=== PATIENT | female | born 1980 | race Caucasian/White ===

== ENCOUNTER 2016-08-22 19:20 | Emergency (ER) | payer SELFPAY ==
[2016-08-22] MEDS ORDERED: ACETAMINOPHEN 325 MG TABLET PO ONE (21:17)
--- NOTE | 2016-08-22 21:27 | ER Document Report ---
HPI - HPI Pain Level: 4 Context: Is a 36-year-old female who was doing her hair this afternoon when she had her arm up in her hair and she hit her elbow on the door frame. She states she has pain on the medial aspect of the elbow but has full range of motion. Is been able to lift her granddaughter. Denies any swelling. - REPRODUCTIVE LMP: 3 Reproductive: DENIES: : - DERM Skin Color: Normal Past Medical History - Social History Smoking Status: Current Every Day Smoker Family History: Reviewed & Not Pertinent Patient has suicidal ideation: No Patient has homicidal ideation: No Renal/ Medical History: Denies: Hx Peritoneal Dialysis Psychiatric Medical History: Reports: Hx Depression Past Surgical History: Reports: Hx Tubal Ligation - Immunizations Hx Diphtheria, Pertussis, Tetanus Vaccination: Yes Vertical Provider Document - CONSTITUTIONAL Agree With Documented VS: Yes Exam Limitations: No Limitations General Appearance: WD/WN, No Apparent Distress - INFECTION CONTROL TRAVEL OUTSIDE OF THE [place] IN LAST 30 DAYS: No - RESPIRATORY O2 Sat by Pulse Oximetry: 100 - CARDIOVASCULAR Pulses: Normal: Radial Notes: Capillary refill less than 2 seconds in all upper extremity digits. - MUSCULOSKELETAL/EXTREMETIES Musculoskeletal/Extremeties: MAEW, FROM, Tender - Tenderness to palpation over the head of the radius and ulna., No Edema. negative: Eccymosis - NEURO Level of Consciousness: Awake, Alert, Appropriate Motor/Sensory: No Motor Deficit, No Sensory Deficit - DERM Integumentary: Warm, Dry, No Rash. negative: Laceration Course - Re-evaluation Re-evalutation: 08/22/16 21:58 Patient is a 36-year-old female with a neurovascular intact right upper extremity. No evidence of fracture dislocation on x-ray. At home. - Vital Signs Vital signs: Temp Pulse Resp BP Pulse Ox 98.1 F 88 106/89 H 100 08/22/16 20:29 08/22/16 20:29 08/22/16 20:29 08/22/16 20:29 - Diagnostic Test Radiology reviewed: Image reviewed, Reports reviewed Discharge - Discharge Clinical Impression: Elbow pain Condition: Good Disposition: HOME, SELF-CARE Instructions: Use of [id number]-[id number] Ibuprofen ([facility]), Ice & Elevation ([facility]) Additional Instructions: There is no evidence of fracture (broken bone) on your x-ray. I encourage you to use ice 20 minutes on 20 minutes off as tolerated, Motrin for pain and swelling.
[2016-08-22 21:55] VITALS: BP 102/78
== END 2016-08-22 21:30 | disposition home or self-care (01) ==
LOC: ER 19:20
DX: S59.909A Unspecified injury of unspecified elbow, initial encounter (principal); M25.529 Pain in unspecified elbow; X58.XXXA Exposure to other specified factors, initial encounter; F17.200 Nicotine dependence, unspecified, uncomplicated
CPT/HCPCS: 99283

== ENCOUNTER 2017-01-27 08:40 | Emergency (ER) | payer SELFPAY ==
[2017-01-27] MEDS ORDERED: OXYCODONE-ACETAMINOPHEN 5-325 MG TABLET PO ONE (09:29)
[2017-01-27] MEDS ORDERED: LIDOCAINE 5% (700 MG) TRANSDERMAL ADH..PATCH TP ONE (09:29)
[2017-01-27] MEDS ORDERED: KETOROLAC TROMETHAMINE 60 MG/2 ML SDV IM ONE (09:29)
--- NOTE | 2017-01-27 09:31 | ER Document Report ---
HPI - HPI Patient complains to provider of: Low back pain Onset: Other - 4 days Onset/Duration: Persistent Quality of pain: Sharp Pain Level: 3 Context: Patient states she was moving furniture and she felt a pop in her lower back. Patient states since then she has had low back pain with numbness to the left lower extremity. Patient denies any urinary retention or incontinence. Patient denies any pain to her leg. Patient denies any fever, chronic illness or IV drug use. Associated Symptoms: Other - Low back pain. denies: Fever, Headache Exacerbated by: Movement Relieved by: Denies Similar symptoms previously: No Recently seen / treated by doctor: No - ROS ROS below otherwise negative: Yes Systems Reviewed and Negative: Yes All other systems reviewed and negative - CONSTITUTIONAL Constitutional: DENIES: Fever, Chills - NEURO Neurology: DENIES: Weakness - REPRODUCTIVE Reproductive: DENIES: : - MUSCULOSKELETAL Musculoskeletal: REPORTS: Back Pain. DENIES: Extremity pain - DERM Skin Color: Normal Skin Problems: None Past Medical History - General Information source: Patient - Social History Smoking Status: Current Every Day Smoker Chew tobacco use (# tins/day): No Frequency of alcohol use: Rare Drug Abuse: None Occupation: [employer] Family History: Reviewed & Not Pertinent Renal/ Medical History: Denies: Hx Peritoneal Dialysis Psychiatric Medical History: Reports: Hx Depression Past Surgical History: Reports: Hx Tubal Ligation, Other - eye - Immunizations Hx Diphtheria, Pertussis, Tetanus Vaccination: Yes Vertical Provider Document - CONSTITUTIONAL Agree With Documented VS: Yes Exam Limitations: No Limitations General Appearance: WD/WN, No Apparent Distress Notes: PHYSICAL EXAMINATION: GENERAL: Well-appearing, well-nourished and in no acute distress. HEAD: Atraumatic, normocephalic. EYES: sclera clear, anicteric, conjunctiva are normal. ENT: nares patent, Moist mucous membranes. NECK: Normal range of motion, supple no lymphadenopathy LUNGS: respirations unlabored HEART: Regular rate and rhythm without murmurs EXTREMITIES: Normal range of motion, no pitting or edema. No cyanosis. Gait normal, pt ambulates without difficulty BACK: Lower lumbar paraspinal tenderness, lower lumbar midline tenderness, no deformities or step-offs. No CVA tenderness. NEUROLOGICAL: Cranial nerves grossly intact. Normal speech, normal gait. No saddle anesthesia. No foot drop, negative straight leg test bilaterally PSYCH: Normal mood, normal affect. SKIN: Warm, Dry, normal turgor, no rashes or lesions noted. - INFECTION CONTROL TRAVEL OUTSIDE OF THE [place] IN LAST 30 DAYS: No - RESPIRATORY O2 Sat by Pulse Oximetry: 100 Course - Vital Signs Vital signs: Temp Pulse Resp BP Pulse Ox 98.0 F 101 H 14 114/97 H 100 01/27/17 08:44 01/27/17 08:44 01/27/17 08:44 01/27/17 08:44 01/27/17 08:44 - Diagnostic Test Radiology reviewed: Reports reviewed Discharge - Discharge Clinical Impression: Low back pain Qualifiers: Chronicity: acute Back pain laterality: left Sciatica presence: with sciatica Sciatica laterality: sciatica of left side Qualified Code(s): M54.42 - Lumbago with sciatica, left side Condition: Stable Disposition: HOME, SELF-CARE Instructions: Ice Packs ([facility]), Low Back Pain ([facility]), Oral Narcotic Medication ( [facility]), Sciatica ([facility]) Additional Instructions: Return immediately for any new or worsening symptoms Followup with your primary care provider, call tomorrow to make a followup appointment Prescriptions: Oxycodone HCl/Acetaminophen [Percocet 5-325 mg Tablet] 1 - 2 tab PO ASDIR PRN # 15 tablet PRN Reason: Prednisone [Deltasone 20 mg Tablet] 3 tab PO DAILY 4 Days tablet Forms: Return to Work Referrals: [facility] [Provider Group] - Follow up as needed
--- NOTE | 2017-01-27 10:17 | RADIOLOGY REPORT (SQ) ---
EXAM DESCRIPTION: L SPINE WHOLE COMPLETED DATE/TIME: 01/27/2017 10:10 am REASON FOR STUDY: low back pain COMPARISON: 10/18/2007 NUMBER OF VIEWS: Five views including obliques. TECHNIQUE: AP, lateral, oblique, and sacral radiographic images acquired of the lumbar spine. LIMITATIONS: None. FINDINGS: MINERALIZATION: Normal. SEGMENTATION: Normal. No transitional anatomy. ALIGNMENT: Normal. VERTEBRAE: Maintained height. No fracture or worrisome bone lesion. DISCS: Preserved height. No significant osteophytes or end plate irregularity. POSTERIOR ELEMENTS: Hypertrophic facet changes are present at L5-S1. HARDWARE: None in the spine. PARASPINAL SOFT TISSUES: Normal. PELVIS: Intact as visualized. No fractures or worrisome bone lesions. SI joints intact. OTHER: No other significant finding. IMPRESSION: Facet arthropathy. TECHNICAL DOCUMENTATION: JOB ID: [id number] [employer]- All Rights Reserved
[2017-01-27 10:32] VITALS: BP 133/86
== END 2017-01-27 10:30 | disposition home or self-care (01) ==
LOC: ER 08:40
DX: M54.42 Lumbago with sciatica, left side (principal); R20.0 Anesthesia of skin; F17.200 Nicotine dependence, unspecified, uncomplicated
CPT/HCPCS: 99283; 96372; 72110; J1885

== ENCOUNTER 2017-05-30 11:38 | Emergency (ER) | payer SELFPAY ==
[2017-05-30] MEDS ORDERED: KETOROLAC TROMETHAMINE 60 MG/2 ML SDV IM ONE (12:58)
--- NOTE | 2017-05-30 13:00 | ER Document Report ---
HPI - HPI Patient complains to provider of: BACK PAIN Onset: Yesterday Onset/Duration: Sudden Quality of pain: Throbbing Severity: Severe Pain Level: 5 Context: Patient states she fell on her back after slipping on the ice yesterday and heard a loud pop. Patient has a history of chronic back pain. Denies loss of control of bowels or bladder. Associated Symptoms: None Exacerbated by: Movement Relieved by: Denies Similar symptoms previously: Yes Recently seen / treated by doctor: No - ROS ROS below otherwise negative: Yes Systems Reviewed and Negative: Yes All other systems reviewed and negative - CONSTITUTIONAL Constitutional: DENIES: Fever - EENT EENT: DENIES: Congestion - NEURO Neurology: DENIES: Headache - CARDIOVASCULAR Cardiovascular: DENIES: Chest pain - RESPIRATORY Respiratory: DENIES: Trouble Breathing - GASTROINTESTINAL Gastrointestinal: DENIES: Abdominal Pain - URINARY Urinary: DENIES: Dysuria, Urgency, Frequency - REPRODUCTIVE LMP: May 13 Reproductive: DENIES: : - MUSCULOSKELETAL Musculoskeletal: REPORTS: Back Pain - DERM Skin Color: Normal Past Medical History - General Information source: Patient - Social History Smoking Status: Current Every Day Smoker Cigarette use (# per day): Yes Frequency of alcohol use: None Drug Abuse: None Lives with: Family Family History: Reviewed & Not Pertinent Musculoskeltal Medical History: Reports Other - Chronic back pain Psychiatric Medical History: Reports: Hx Depression Past Surgical History: Reports: Hx Tubal Ligation, Other - eye - Immunizations Hx Diphtheria, Pertussis, Tetanus Vaccination: Yes Vertical Provider Document - CONSTITUTIONAL Agree With Documented VS: Yes Exam Limitations: No Limitations General Appearance: WD/WN Notes: Patient able to sit up in bed slowly but without apparent difficulty. Sitting crosslegged on bed after sitting up. - INFECTION CONTROL TRAVEL OUTSIDE OF THE [place] IN LAST 30 DAYS: No - HEENT HEENT: Atraumatic, Normocephalic - RESPIRATORY Respiratory: Breath Sounds Normal, No Respiratory Distress O2 Sat by Pulse Oximetry: 100 - CARDIOVASCULAR Cardiovascular: Regular Rate, Regular Rhythm - GI/ABDOMEN Gastrointestinal: Abdomen Soft, Abdomen Non-Tender - BACK Notes: Tender L-spine and lumbar paraspinal muscles bilaterally. Mild tenderness to lower thoracic paraspinal muscles. No saddle anesthesia. - MUSCULOSKELETAL/EXTREMETIES Musculoskeletal/Extremeties: MAEW - NEURO Level of Consciousness: Awake, Alert, Appropriate - DERM Integumentary: Warm, Dry - No bruising or abrasions noted. Course - Re-evaluation Re-evalutation: 05/30/17 13:55 X-rays were negative for fracture and this was discussed with the patient. - Vital Signs Vital signs: Temp Pulse Resp BP Pulse Ox 98.7 F 84 16 116/69 100 05/30/17 11:43 05/30/17 11:43 05/30/17 11:43 05/30/17 11:43 05/30/17 11:43 Discharge - Discharge Clinical Impression: Back pain Qualifiers: Back pain location: low back pain Chronicity: acute Back pain laterality: bilateral Sciatica presence: without sciatica Qualified Code(s): M54.5 - Low back pain Back contusion Qualifiers: Encounter type: initial encounter Laterality: unspecified laterality Qualified Code(s): S20.229A - Contusion of unspecified back wall of thorax, initial encounter Condition: Good Disposition: HOME, SELF-CARE Instructions: Ice Packs ([facility]), Low Back Pain ([facility]), Muscle Strain ([facility]), Pain Medication Injection ([facility]), Warm Packs ([facility]) Additional Instructions: Muscle relaxers as prescribed Ice or heat packs to back Ibuprofen every 8 hours as needed for pain, take with food Follow-up with your doctor for recheck Monday return as needed Prescriptions: Cyclobenzaprine HCl [Flexeril 5 mg Tablet] 5 mg PO TID #15 tablet Ibuprofen 800 mg PO TID PRN #20 tablet PRN Reason:
--- NOTE | 2017-05-30 13:43 | RADIOLOGY REPORT (SQ) ---
EXAM DESCRIPTION: L SPINE WHOLE COMPLETED DATE/TIME: 05/30/2017 1:30 pm REASON FOR STUDY: PAIN, FELL ON ICE COMPARISON: Lumbar spine films 01/27/2017, 10/18/2007 NUMBER OF VIEWS: Five views including obliques. TECHNIQUE: AP, lateral, oblique, and sacral radiographic images acquired of the lumbar spine. LIMITATIONS: None. FINDINGS: MINERALIZATION: Normal. SEGMENTATION: Normal. No transitional anatomy. ALIGNMENT: Normal. VERTEBRAE: Maintained height. No fracture or worrisome bone lesion. DISCS: Preserved height. No significant osteophytes or end plate irregularity. POSTERIOR ELEMENTS: Pedicles and facets are intact. No pars defect or posterior arch defects. Mild bilateral facet arthropathy at L3-4, L4-5, and L5-S1 HARDWARE: None in the spine. PARASPINAL SOFT TISSUES: Normal. PELVIS: Intact as visualized. No fractures or worrisome bone lesions. SI joints intact. OTHER: No other significant finding. IMPRESSION: Mild lower lumbar facet arthropathy. No acute fracture or malalignment. TECHNICAL DOCUMENTATION: JOB ID: [id number]- All Rights Reserved
[2017-05-30 14:06] VITALS: BP 115/68
== END 2017-05-30 14:05 | disposition home or self-care (01) ==
LOC: ER 11:38
DX: S20.229A Contusion of unspecified back wall of thorax, initial encounter (principal); M54.9 Dorsalgia, unspecified; G89.29 Other chronic pain; W00.0XXA Fall on same level due to ice and snow, initial encounter; F17.210 Nicotine dependence, cigarettes, uncomplicated
CPT/HCPCS: 99283; 72110; J1885

== ENCOUNTER 2017-10-11 16:14 | Emergency (ER) | payer SELFPAY ==
[2017-10-11 17:22] LABS: APPEARANCE,URINE SLIGHTLY-CLOUDY; BILIRUBIN,URINE NEGATIVE (NEGATIVE); GLUCOSE, URINE NEGATIVE (NEGATIVE); KETONES,URINE NEGATIVE (NEGATIVE); LEUKOCYTE ESTERASE,URINE LARGE (NEGATIVE); NITRITE,URINE POSITIVE (NEGATIVE); PROTEIN,URINE NEGATIVE (NEGATIVE); URINE SPECIFIC GRAVITY 1.004
[2017-10-11 17:23] LABS: COLOR,URINE DARK YELLOW
[2017-10-11] MEDS ORDERED: IBUPROFEN 600 MG TABLET PO ONE (17:42)
[2017-10-11] MEDS ORDERED: PHENAZOPYRIDINE HCL 200 MG TABLET PO ONE (17:42)
[2017-10-11] MEDS ORDERED: NITROFURANTOIN MONOHYD/M-CRYST 100 MG CAPSULE PO ONE (17:42)
[2017-10-11] MEDS ORDERED: SULFAMETHOXAZOLE/TRIMETHOPRIM 800-160 MG TABLET PO ONE (17:44)
--- NOTE | 2017-10-11 17:47 | ER Document Report ---
ED GI/ - General Chief Complaint: Urinary Problem Stated Complaint: URINARY ISSUE Time Seen by Provider: 10/11/17 17:10 Mode of Arrival: Ambulatory Information source: Patient Notes: 37-year-old female presented ED for complaint of urinary frequency urgency and burning since Monday. She states she took some Azo [id number] with no relief. She denies any fevers. Last menstrual period was 09/11/2017. Patient is alert and oriented, patient is speaking in full even sentences, respirations are regular and unlabored, and patient walks with a even steady gait. TRAVEL OUTSIDE OF THE [place] IN LAST 30 DAYS: No - HPI Patient complains to provider of: Other - Suprapubic pain urinary frequency urgency burning Onset: Other - Monday Quality of pain: Burning - Urination, Cramping - Suprapubic Severity at maximum: Moderate Severity in ED: Moderate Pain Level: 4 Location: Suprapubic Vaginal bleeding (Compared to normal period): None LMP: 09/11/2017 Associated symptoms: Urinary hesitancy, Urinary frequency, Urinary urgency, Other - Urinary burning and pain Exacerbated by: Other - Urination Relieved by: Denies Similar symptoms previously: Yes Recently seen / treated by doctor: No - Related Data Allergies/Adverse Reactions: No Known Allergies Allergy (Verified 10/11/17 16:14) Past Medical History - General Information source: Patient Last Menstrual Period: 09/11/2017 - Social History Smoking Status: Current Every Day Smoker Cigarette use (# per day): Yes - Pack per day Chew tobacco use (# tins/day): No Smoking Education Provided: Yes - 4 minutes Frequency of alcohol use: Social Drug Abuse: None Occupation: No Lives with: Family Family History: Reviewed & Not Pertinent Patient has suicidal ideation: No Patient has homicidal ideation: No - Past Medical History Cardiac Medical History: Reports: None Pulmonary Medical History: Reports: Hx Bronchitis EENT Medical History: Reports: Eyes - As surgery as a child Neurological Medical History: Reports: None Endocrine Medical History: Reports: None Renal/ Medical History: Reports: None Malignancy Medical History: Reports: None GI Medical History: Reports: None Musculoskeltal Medical History: Reports Hx Musculoskeletal Deformity - Degenerative disc disease, Reports Hx Musculoskeletal Trauma - Heel fracture Skin Medical History: Reports None Psychiatric Medical History: Reports: None, Hx Bipolar Disorder, Hx Borderline Personality Disorder, Hx Depression, Hx Post Traumatic Stress Disorder Traumatic Medical History: Reports: Hx Fractures - heel Infectious Medical History: Reports: None Past Surgical History: Reports: Hx Tubal Ligation, Other - eye - Immunizations Hx Diphtheria, Pertussis, Tetanus Vaccination: Yes Review of Systems - Review of Systems Constitutional: No symptoms reported EENT: No symptoms reported Cardiovascular: No symptoms reported Respiratory: No symptoms reported Gastrointestinal: No symptoms reported Genitourinary: Burning, Frequency, Pain, Urgency Female Genitourinary: No symptoms reported Musculoskeletal: No symptoms reported Skin: No symptoms reported Hematologic/Lymphatic: No symptoms reported Neurological/Psychological: No symptoms reported -: Yes All other systems reviewed and negative Physical Exam - Vital signs Vitals: Temp Pulse Resp BP Pulse Ox 99.3 F 89 18 128/76 H 97 10/11/17 16:18 10/11/17 16:18 10/11/17 16:18 10/11/17 16:18 10/11/17 16:18 Interpretation: Normal - General General appearance: Appears well, Alert - HEENT Head: Normocephalic, Atraumatic Eyes: Normal Pupils: PERRL - Respiratory Respiratory status: No respiratory distress Chest status: Nontender Breath sounds: Normal Chest palpation: Normal - Cardiovascular Rhythm: Regular Heart sounds: Normal auscultation Murmur: No - Abdominal Inspection: Normal Distension: No distension Bowel sounds: Normal Tenderness: Tender - Suprapubic Organomegaly: No organomegaly - Back Back: Normal, Nontender - Extremities General upper extremity: Normal inspection, Nontender, Normal color, Normal ROM , Normal temperature General lower extremity: Normal inspection, Nontender, Normal color, Normal ROM , Normal temperature, Normal weight bearing. No: Rissa's sign - Neurological Neuro grossly intact: Yes Cognition: Normal Orientation: AAOx4 Carr Coma Scale Eye Opening: Spontaneous Carr Coma Scale Verbal: Oriented Carr Coma Scale Motor: Obeys Commands Asya Coma Scale Total: 15 Speech: Normal Motor strength normal: LUE, RUE, LLE, RLE Sensory: Normal - Psychological Associated symptoms: Normal affect, Normal mood - Skin Skin Temperature: Warm Skin Moisture: Dry Skin Color: Normal Course - Vital Signs Vital signs: Temp Pulse Resp BP Pulse Ox 99.3 F 83 18 125/76 100 10/11/17 16:18 10/11/17 18:12 10/11/17 18:12 10/11/17 18:12 10/11/17 18:12 - Laboratory Laboratory results interpreted by me: 10/11/17 16:45 Urine Blood MODERATE H Urine Nitrite POSITIVE H Urine Urobilinogen 2.0 H Ur Leukocyte Esterase LARGE H Discharge - Discharge Clinical Impression: UTI (urinary tract infection) Qualifiers: Urinary tract infection type: site unspecified Hematuria presence: without hematuria Qualified Code(s): N39.0 - Urinary tract infection, site not specified Condition: Stable Disposition: HOME, SELF-CARE Instructions: Family Physicians / Practices Additional Instructions: URINARY TRACT INFECTION: Your evaluation indicates that you have a urinary tract infection. This is due to germs growing in the bladder. This is a common problem. This infection usually responds quickly to antibiotics. Your antibiotic should be taken exactly as prescribed. Drink plenty of fluids -- three to four quarts a day. Occasionally, a bladder anesthetic will be prescribed to help stop the feeling of urgency until the antibiotic has a chance to clear the infection. This may cause your urine to be dark orange. Certain urine infections require a culture. If the doctor obtained a culture, the results will be back in two days. You should call to see if a change in treatment is needed. A repeat urinalysis after you finish treatment is often recommended. The physician will let you know if further testing is required. Call the doctor if you develop fever, chills, flank pain, inability to urinate, or blood in the urine. TRIMETHOPRIM-SULFA: You have been given a prescription for trimethoprim-sulfa (TMS, Septra, Bactrim). This is a combination antibiotic of the sulfa class, often used for urinary tract infections, middle ear infections, bronchitis, shigella intestinal infection, and Pneumocystis pneumonia. TMS is usually well-tolerated. Occasional side effects include nausea and decreased appetite. Septra is not recommended for infants less than two months of age. Do not take this medication if you have experienced severe side effects or allergy to sulfa medicine. You should stop this medicine at once and contact your physician if you develop any rash, joint pain, shortness of breath, bruising, or jaundice ( yellow color in the skin), or if you develop any other new or unusual symptoms. URINARY ANESTHETIC AGENT: You have been given a medication (Pyridium) for urinary tract discomfort. This medicine numbs the lining of the bladder and urethra, resulting in less pain, burning, and urgency. You may take it as needed, according to instructions. When the symptoms resolve, you can stop this medication (be sure to continue any other medications the doctor has given you). This medicine turns the urine a dark orange. It may stain underwear. Occasionally, it can cause nausea. Return for evaluation if there are any unexpected effects, such as itching, hives, or shortness of breath. FOLLOW-UP CARE: If you have been referred to a physician for follow-up care, call the physician s office for an appointment as you were instructed or within the next two days. If you experience worsening or a significant change in your symptoms, notify the physician immediately or return to the Emergency Department at any time for re-evaluation. Prescriptions: Phenazopyridine HCl [Pyridium 200 mg Tablet] 200 mg PO TID #15 tablet Sulfamethoxazole/Trimethoprim [Bactrim Ds Tablet] 1 each PO BID #20 tablet Forms: Smoking Cessation Education Referrals: [facility] [Provider Group] - Follow up as needed
[2017-10-11 18:18] VITALS: BP 125/76
== END 2017-10-11 18:12 | disposition home or self-care (01) ==
LOC: ER 16:14
DX: N39.0 Urinary tract infection, site not specified (principal); R35.0 Frequency of micturition; R39.15 Urgency of urination; R30.9 Painful micturition, unspecified; R10.30 Lower abdominal pain, unspecified; F17.210 Nicotine dependence, cigarettes, uncomplicated
CPT/HCPCS: 99283; 87086; 87088; 81001; 87186; J3490

== ENCOUNTER → 2019-03-18 | Outpatient (CLI) | payer MEDICAID ==
--- NOTE | 2019-03-18 13:14 | RADIOLOGY REPORT (SQ) ---
EXAM DESCRIPTION: C SP 4 OR 5 VIEWS COMPLETED DATE/TIME: 03/18/2019 12:59 pm REASON FOR STUDY: ARM PARESTHESIA,RIGHT R20.2 PARESTHESIA OF SKIN COMPARISON: None. NUMBER OF VIEWS: Five views. TECHNIQUE: AP, lateral, obliques and odontoid radiographic images acquired of the cervical spine. LIMITATIONS: None. FINDINGS: MINERALIZATION: Normal. ALIGNMENT: Anatomic. VERTEBRAE: Vertebral bodies of normal height. DISCS: No significant osteophytes or sclerosis. Disc height maintained. FORAMINA: No osteophytes or foraminal narrowing. LATERAL AND POSTERIOR ELEMENTS: Facets, lateral masses and spinous processes without significant find ings. HARDWARE: None in the spine. SOFT TISSUES: No masses or calcifications. Lung apices clear. OTHER: No other significant finding. IMPRESSION: NO SIGNIFICANT RADIOGRAPHIC FINDING IN THE CERVICAL SPINE. TECHNICAL DOCUMENTATION: JOB ID: [id number] [employer]- All Rights Reserved Reading location - IP/workstation name: [email or web address]
== END ==
LOC: OD 12:33
PROVIDERS: ATTEND Physician Assistant
DX: R20.2 Paresthesia of skin (principal)
CPT/HCPCS: 72050

== ENCOUNTER 2020-02-17 09:41 | Emergency (ER) | payer MEDICAID ==
[2020-02-17] MEDS ORDERED: RINGERS SOLUTION,LACTATED 1,000 ML IV ONE (10:05)
--- NOTE | 2020-02-17 10:09 | ER Document Report ---
ED Medical Screen (RME) - General TRAVEL OUTSIDE OF THE [place] IN LAST 30 DAYS: No - Related Data Home Medications: DEPRESSION. ANXIETY. AMOXICILLIN <JAVIER CAI - Last Filed: 02/17/20 10:06> - General Mode of Arrival: Ambulatory Information source: Patient <MARY BRAGA - Last Filed: 02/17/20 10:40> - General Chief Complaint: Breathing Difficulty Stated Complaint: LEGS/ARMS SWELLING,ABNORMAL LABS Time Seen by Provider: 02/17/20 10:02 Primary Care Provider: TODD JUNE PA [NO LOCAL MD] - Follow up as needed Notes: Patient is a 39-year-old female who presents emergency department with nodding off multiple times. Patient was recently admitted to both [facility] and [facility], which she was treated for pneumonia. She also had a DVT. Patient continues to nod off, per family member at bedside. Exam: Oxygen saturation 89% on room air. Patient nodding off and head feeling back in triage. I have greeted and performed a rapid initial assessment of this patient. A comprehensive ED assessment and evaluation of the patient, analysis of test results and completion of medical decision making process will be conducted by an additional ED providers. (JAVIER CAI) - Related Data Allergies/Adverse Reactions: No Known Allergies Allergy (Verified 02/17/20 09:51) Past Medical History - Social History Chew tobacco use (# tins/day): No Frequency of alcohol use: Occasional Drug Abuse: None Pulmonary Medical History: Reports: Hx Bronchitis Renal/ Medical History: Denies: Hx Peritoneal Dialysis Musculoskeltal Medical History: Reports Hx Musculoskeletal Deformity - Degenerative disc disease, Reports Hx Musculoskeletal Trauma - Heel fracture Psychiatric Medical History: Reports: Hx Bipolar Disorder, Hx Borderline Personality Disorder, Hx Depression, Hx Post Traumatic Stress Disorder Traumatic Medical History: Reports: Hx Fractures - heel Past Surgical History: Reports: Hx Tubal Ligation, Other - eye - Immunizations Hx Diphtheria, Pertussis, Tetanus Vaccination: Yes <ARELIS CAIRONY Christianson - Last Filed: 02/17/20 10:06> Physical Exam - Vital signs Vitals: Temp Pulse Resp BP Pulse Ox 98.4 F 115 H 16 104/81 90 L 02/17/20 09:46 02/17/20 09:46 02/17/20 09:46 02/17/20 09:46 02/17/20 09:46 Course - Vital Signs Vital signs: Temp Pulse Resp BP Pulse Ox 98.4 F 115 H 16 104/81 90 L 02/17/20 09:46 02/17/20 09:46 02/17/20 09:46 02/17/20 09:46 02/17/20 09:46 Doctor's Discharge <JAVIER CAI - Last Filed: 02/17/20 10:06> <MARY BRAGA - Last Filed: 02/17/20 10:40> - Discharge Referrals: TODD JUNE PA [NO LOCAL MD] - Follow up as needed
[2020-02-17 11:06] LABS: ARTERIAL BLOOD BASE EXCESS -2.7 mmol/L; ARTERIAL BLOOD H2CO3 1.47 mmol/L (1.05-1.35); ARTERIAL BLOOD HCO3 23.9 mmol/L (20-24); ARTERIAL BLOOD O2 SATURATION 93.3 % (94-98); ARTERIAL BLOOD PCO2 48.7 mmHg (35-45); ARTERIAL BLOOD PH 7.31 (7.35-7.45); ARTERIAL BLOOD PO2 73.1 mmHg (80-100); ARTERIAL BLOOD TOTAL CO2 25.4 mmol/L (21-25)
[2020-02-17 11:09] LABS: ABSOLUTE EOSINOPHILS # (AUTO) 0.1 10^3/uL (0.0-0.6); ABSOLUTE MONOCYTES (AUTO) 0.6 10^3/uL (0.1-1.4); ABSOLUTE NEUT (AUTO) 7.4 10^3/uL (1.7-8.2); ARTERIAL BLOOD FIO2 2L; BASOPHILS % (AUTO) 0.3 % (0-2); EOSINOPHILS % (AUTO) 1.2 % (0-6); HEMATOCRIT 34.7 % (36.0-47.0); HEMOGLOBIN 11.9 g/dL (12.0-15.5); MEAN CORPUSCULAR HEMOGLOBIN 30.6 pg (27.0-33.4); MEAN CORPUSCULAR HGB CONC 34.2 g/dL (32.0-36.0); MEAN CORPUSCULAR VOLUME 89 fl (80-97); MONOCYTES % (AUTO) 6.5 % (3-13); PLATELET COUNT 228 10^3/uL (150-450); RED BLOOD COUNT 3.88 10^6/uL (3.72-5.28); RED CELL DISTRIBUTION WIDTH 14.1 % (11.5-14.0); TOTAL CELLS COUNTED % (AUTO) 100 %; WHITE BLOOD COUNT 9.2 10^3/uL (4.0-10.5)
--- NOTE | 2020-02-17 11:26 | RADIOLOGY REPORT (SQ) ---
EXAM DESCRIPTION: CT HEAD WITHOUT IMAGES COMPLETED DATE/TIME: 02/17/2020 11:11 am REASON FOR STUDY: AMS COMPARISON: None. TECHNIQUE: Axial images acquired through the brain without intravenous contrast. Images reviewed wi th bone, brain and subdural windows. Additional sagittal and coronal reconstructions were generated. Images stored on PACS. All CT scanners at this facility use dose modulation, iterative reconstruction, and/or weight based d osing when appropriate to reduce radiation dose to as low as reasonably achievable (ALARA). [facility]: Dose Right [facility]: CareDose [facility]: Dose Right [facility]: Teradose 4D [facility]: [employer]ill RADIATION DOSE: CT Rad equipment meets quality standard of care and radiation dose reduction techniq ues were employed. CTDIvol: 53.2 mGy. DLP: 1044 mGy-cm. LIMITATIONS: None. FINDINGS: The peripherally calcified lesion at the foramen of Monro (image 19 of series 2) could rep resent a colloid cyst. There is no acute intracranial hemorrhage, vascular territorial infarct, extra-axial fluid collection , mass effect or midline shift. The pollard-white matter differentiation is preserved. The caliber of the ventricles is concordant with the degree of sulcation. There is no effacement of the cerebral barrett lci or basal subarachnoid cisterns. The orbits and globes are intact. The paranasal sinuses and mastoid air cells are clear. There is n o fracture of the calvarium. IMPRESSION: 1. No acute intracranial abnormality. 2. 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 There is no associated hydrocephalus. EVIDENCE OF ACUTE STROKE: NO. COMMENT: Quality ID # [id number]: Final reports with documentation of one or more dose reduction techniques (e.g., Automated exposure control, adjustment of the mA and/or kV according to patient size, use of iterative reconstruction technique) TECHNICAL DOCUMENTATION: JOB ID: [id number] 2010 [employer]- All Rights Reserved Reading location - IP/workstation name: [email or web address]
[2020-02-17 11:29] LABS: ALBUMIN 3.7 g/dL (3.5-5.0); ALKALINE PHOSPHATASE 60 U/L (38-126); ANION GAP 10 (5-19); ASPARTATE AMINO TRANSFERASE 97 U/L (14-36); BILIRUBIN,DIRECT 0.3 mg/dL (0.0-0.4); BILIRUBIN,TOTAL 0.5 mg/dL (0.2-1.3); BLOOD UREA NITROGEN 4 mg/dL (7-20); CALCIUM 8.8 mg/dL (8.4-10.2); CARBON DIOXIDE 25 mmol/L (22-30); CHLORIDE 107 mmol/L (98-107); GLUCOSE 84 mg/dL (75-110); POTASSIUM 3.9 mmol/L (3.6-5.0); TOTAL PROTEIN 6.7 g/dL (6.3-8.2)
[2020-02-17] MEDS ORDERED: NORMAL SALINE 1000 ML 1,000 ML IV ONE ×2 (12:12→17:56)
--- NOTE | 2020-02-17 12:12 | ER Document Report ---
ED General <BERENICE CORREA - Last Filed: 02/17/20 23:18> - General Mode of Arrival: Ambulatory Information source: Patient TRAVEL OUTSIDE OF THE [place] IN LAST 30 DAYS: No - Related Data Home Medications: DEPRESSION. ANXIETY. AMOXICILLIN <MARY COLUNGA - Last Filed: 02/19/20 21:50> - General Chief Complaint: Breathing Difficulty Stated Complaint: LEGS/ARMS SWELLING,ABNORMAL LABS Time Seen by Provider: 02/17/20 10:02 Primary Care Provider: TODD JUNE PA [NO LOCAL MD] - Follow up as needed Notes: This 39-year-old woman presents to the emergency department with a complaint of confusion, weakness, feeling poorly. Apparently hospitalized at [facility] and [facility] recently. Patient was seen here and diagnosed with a DVT involving the right upper extremity. She was told that there was no DVT [facility]. She has been having these episodes of confusion and weakness. She also was diagnosed with rhabdo at [facility]. The patient history which is noted in a separate account notes 02/14/2020 she was seen in the emergency department apparently found unresponsive in a neighbor's yard. Patient was intubated on that date and transferred to [facility]. She apparently diagnosed with respiratory distress, respiratory failure and KI. She was also seen and diagnosed with a GI bleed. During her previous stay here after her [facility] admission the patient was diagnosed with a nonocclusive DVT involving the right antecubital and right jugular vein. She apparently eloped before care could be given and was seen at [facility]. There she was told that she did not have a clot that there was swelling in the arm from fluid. She was discharged from that facility presents here today. (MARIA LUZ,MARY) - Related Data Allergies/Adverse Reactions: No Known Allergies Allergy (Verified 02/17/20 09:51) Past Medical History - General Information source: Patient - Social History Smoking Status: Current Every Day Smoker Chew tobacco use (# tins/day): No Frequency of alcohol use: Occasional Drug Abuse: None Family History: Reviewed & Not Pertinent Patient has homicidal ideation: No Pulmonary Medical History: Reports: Hx Bronchitis Renal/ Medical History: Denies: Hx Peritoneal Dialysis Musculoskeletal Medical History: Reports Hx Musculoskeletal Deformity - Degene rative disc disease, Reports Hx Musculoskeletal Trauma - Heel fracture Psychiatric Medical History: Reports: Hx Bipolar Disorder, Hx Borderline Personality Disorder, Hx Depression, Hx Post Traumatic Stress Disorder Traumatic Medical History: Reports: Hx Fractures - heel Past Surgical History: Reports: Hx Tubal Ligation, Other - eye - Immunizations Hx Diphtheria, Pertussis, Tetanus Vaccination: Yes <MARY COLUNGA - Last Filed: 02/19/20 21:50> Review of Systems <MARY COLUNGA - Last Filed: 02/19/20 21:50> - Review of Systems Notes: Constitutional: Negative for fever. HENT: Negative for sore throat. Eyes: Negative for visual changes. Cardiovascular: Negative for chest pain. Respiratory: Negative for shortness of breath. Gastrointestinal: Negative for abdominal pain, vomiting or diarrhea. Genitourinary: Negative for dysuria. Musculoskeletal: Negative for back pain. Skin: Negative for rash. Neurological: + Some confusion 10 point ROS negative except as marked above and in HPI. (MARY COLUNGA) Physical Exam <MARY COLUNGA - Last Filed: 02/19/20 21:50> - Vital signs Vitals: Temp Pulse Resp BP Pulse Ox 98.4 F 115 H 16 104/81 90 L 02/17/20 09:46 02/17/20 09:46 02/17/20 09:46 02/17/20 09:46 02/17/20 09:46 - Notes Notes: PHYSICAL EXAMINATION: Physical Exam: General: Well-nourished well-developed 39-year-old woman in no acute distress HEENT: NC/AT, pupils equal round and reactive to light, MM moist,nares clear, oropharynx clear, airway patent Neck: supple, no adenopathy, no masses. Good range of motion Lungs: clear, no wheezing, no rales no rhonchi CVS: Regular rate and rhythm no murmur gallop or rub Abdomen: Soft, active, nontender, no masses, no hepatosplenomegaly Ext: Right upper extremity with some edema of the posterior hand. Neuro: Alert oriented to self, disoriented to time and place. No focal neurologic findings Skin: Intact no open lesions, no rash (MARY COLUNGA) Course - Laboratory Result Diagrams: 02/17/20 10:47 02/17/20 10:47 <BERENICE CORREA - Last Filed: 02/17/20 23:18> - Laboratory Result Diagrams: 02/17/20 10:47 02/17/20 10:47 - Diagnostic Test Radiology reviewed: Image reviewed, Reports reviewed - EKG Interpretation by Me Rate: Tachycardia - EKG interpreted by Dr. Colunga: Sinus tachycardia, rate 176, QT interval 356 normal, axis is normal, probable left atrial abnormality, nonspecific ST-T wave abnormalities noted.,there is no prior EKG to compare. <MARY COLUNGA - Last Filed: 02/19/20 21:50> - Re-evaluation Re-evalutation: 02/17/20 19:02 I discussed the patient with our hospitalist, Dr Mistry, here who felt that the patient has obvious altered mental status, however given her recent syncopal episode requiring intubation, it is not clear whether she has suffered from some form of anoxic injury or not. He also notes that history from family notes that she had a GI bleed when she was seen at [facility] and was put on PPI. Ultrasound revealed a non-occlusive DVT involving the right antecubital and right internal jugular. 02/17/20 19:16 After some discussion with Dr. Mistry it is clear that patient would not be admitted to our hospital, his suggestion is that she has a neurologic consultati on. 02/17/20 19:39 Have contacted [facility] hospitals regarding possible transfer. The neurology hospitalist is unavailable at this time. They will call back. 02/17/20 20:12 I have turned the patient's care over to my colleague Dr. Correa, she will follow-up with her transfer plans. (MARY COLUNGA) - Vital Signs Vital signs: Temp Pulse Resp BP Pulse Ox 98.3 F 115 H 22 H 149/99 H 98 02/18/20 02:14 02/17/20 09:46 02/18/20 02:14 02/18/20 02:14 02/18/20 02:14 - Laboratory Laboratory results interpreted by me: 02/17/20 02/17/20 02/17/20 10:47 10:47 10:47 Hgb 11.9 L Hct 34.7 L RDW 14.1 H Lymph % (Auto) 11.0 L Seg Neutrophils % 81.0 H Carbonic Acid ABG pH ABG pCO2 ABG pO2 ABG Total CO2 ABG O2 Saturation BUN 4 L Lactic Acid 0.6 L AST 97 H ALT 43 H Creatine Kinase Urine Ketones Urine Blood Ur Leukocyte Esterase 02/17/20 02/17/20 02/17/20 10:47 10:47 14:55 Hgb Hct RDW Lymph % (Auto) Seg Neutrophils % Carbonic Acid 1.47 H ABG pH 7.31 L ABG pCO2 48.7 H ABG pO2 73.1 L ABG Total CO2 25.4 H ABG O2 Saturation 93.3 L BUN Lactic Acid AST ALT Creatine Kinase 2299 H Urine Ketones TRACE H Urine Blood LARGE H Ur Leukocyte Esterase MODERATE H 02/17/20 18:45 I have reviewed laboratory data and used this information for the treatment decisions regarding the patient. (MARY COLUNGA) - Diagnostic Test Radiology results interpreted by me: 02/17/20 18:42 Chest x-ray: No acute findings. CT head, noncontrast: No acute intracranial hemorrhage, peripheral calcified lesion at the foramen of Ellison, no hydrocephalus noted, may represent colloid cyst (MARY COLUNGA) Discharge <BERENICE CORREA - Last Filed: 02/17/20 23:18> <MARY COLUNGA - Last Filed: 02/19/20 21:50> - Discharge Clinical Impression: Altered mental status Qualifiers: Altered mental status type: unspecified Qualified Code(s): R41.82 - Altered mental status, unspecified Urinary tract infection Qualifiers: Urinary tract infection type: site unspecified Hematuria presence: without hematuria Qualified Code(s): N39.0 - Urinary tract infection, site not specified Condition: Good Disposition: [facility] Referrals: TODD JUNE PA [NO LOCAL MD] - Follow up as needed
--- NOTE | 2020-02-17 12:14 | RADIOLOGY REPORT (SQ) ---
EXAM DESCRIPTION: CHEST SINGLE VIEW IMAGES COMPLETED DATE/TIME: 02/17/2020 12:03 pm REASON FOR STUDY: RECENT DX OF PNEUMONIA COMPARISON: 2007 EXAM PARAMETERS: NUMBER OF VIEWS: One view. TECHNIQUE: Single frontal radiographic view of the chest acquired. RADIATION DOSE: NA LIMITATIONS: None. FINDINGS: LUNGS AND PLEURA: No opacities, masses or pneumothorax. No pleural effusion. MEDIASTINUM AND HILAR STRUCTURES: No masses. Contour normal. HEART AND VASCULAR STRUCTURES: Heart normal in size. Normal vasculature. BONES: No acute findings. HARDWARE: None in the chest. OTHER: No other significant finding. IMPRESSION: NO ACUTE RADIOGRAPHIC FINDING IN THE CHEST. TECHNICAL DOCUMENTATION: JOB ID: [id number] 2010 [employer]- All Rights Reserved Reading location - IP/workstation name: [email or web address]
--- NOTE | 2020-02-17 13:12 | EKG REPORT ---
SEVERITY:- ABNORMAL ECG - SINUS TACHYCARDIA PROBABLE LEFT ATRIAL ABNORMALITY NONSPECIFIC ST-T CHANGES- ANTERIOR LEADS : Confirmed by: Zander Randhawa MD 17-Feb-2020 13:11:44
[2020-02-17 15:12] LABS: APPEARANCE,URINE SLIGHTLY-CLOUDY; BILIRUBIN,URINE NEGATIVE (NEGATIVE); COLOR,URINE YELLOW; GLUCOSE, URINE NEGATIVE (NEGATIVE); KETONES,URINE TRACE mg/dL (NEGATIVE); LEUKOCYTE ESTERASE,URINE MODERATE (NEGATIVE); NITRITE,URINE NEGATIVE (NEGATIVE); PROTEIN,URINE NEGATIVE (NEGATIVE); URINE SPECIFIC GRAVITY 1.009; UROBILINOGEN,URINE NEGATIVE mg/dL (<2.0)
[2020-02-17 17:13] LABS: URINE AMPHETAMINES SCREEN NEGATIVE; URINE BARBITURATES SCREEN NEGATIVE; URINE COCAINE SCREEN NEGATIVE; URINE MARIJUANA (THC) SCREEN NEGATIVE; URINE METHADONE SCREEN NEGATIVE; URINE PHENCYCLIDINE SCREEN NEGATIVE
[2020-02-17 17:15] LABS: URINE BENZODIAZEPINES SCREEN UNCONFIRMED POSITIVE
[2020-02-17] MEDS ORDERED: CEFTRIAXONE INJ 1000 MG VIAL IV ONE (17:56)
--- NOTE | 2020-02-17 19:25 | PDOC CONSULTATION ---
Consultation Consult Date: 02/17/20 Attending physician:: VENKAT WHYTE Provider Consulted: VENKAT WHYTE Consult reason:: Confusion, hypoxia History of Present Illness Patient complains of: Confusion History of Present Illness: ASTON PATRICK is a 39 year old female with bipolar disorder, recently presented to the hospital 7 days ago after passing out in front yard. In the hospital at [facility], she was initially hypothermic and febrile, altered and hypoxic. Chest x- ray showed right lower lobe pneumonia/atelectasis and she was subsequently intubated. She was noted to have gastric distention and was noted to have GI bleed. She was subsequently sent to [facility] ICU. According to patient's mother as well as her fianc, no EGD was done at [facility] but patient was treated with antibiotics for the pneumonia and subsequently discharged. She was informed that she likely had and also but this was never confirmed with endoscopy. She was also informed there regarding her new onset wrist drop that it was probably because she was on the floor and may have caused some kind of nerve injury. After being discharged home, her mental status continued to decline and she continued to be confused with very poor memory. She also started to have swelling in her right arm and was brought to [facility] on 02/14/2020 during which time venous ultrasound revealed a blood clot in her internal jugular as well as a cephalic vein. Of note, her recent hospital visit is in a different account for some reason. Patient subsequently left AMA before adequate disposition could be decided. The next day, patient was taken to [facility] by her mother who informs me that over there she was told that she did not have any blood clot in the arm but had fluid may be from IV. However they do not recall an ultrasound of the been done to confirm this. Patient was treated for rhabdomyolysis over there and discharged. Today, patient continued to get more confused and blankly staring into space on several occasions. They took her to an outpatient clinic who noted her oxygen level to be low and referred her to the hospital. In the hospital she initially presented with SPO2 of 90 but currently her SPO2 is back up to 98% on room air. Chest x-ray does not show any pneumonia. PPD site seems negative on left forearm. Urinalysis shows moderate leukocytes esterase but only 5 WBCs and no nitrites. Hospitalist service consulted for admission for rhabdomyolysis and UTI. Past Medical History Pulmonary Medical History: Reports: Bronchitis Psychiatric Medical History: Reports: Bipolar Disorder, Depression, Post Traumatic Stress Disorder Past Surgical History Past Surgical History: Reports: Tubal Ligation, Other - eye Social History Smoking Status: Current Every Day Smoker Electronic Cigarette use?: No - Advance Directive Resuscitation Status: Full Code Family History Family History: Hypertension Parental Family History Reviewed: Yes Children Family History Reviewed: Unknown Sibling(s) Family History Reviewed.: Unknown Medication/Allergy Home Medications: Oxycodone HCl/Acetaminophen [Percocet 5-325 mg Tablet] 1 - 2 tab PO ASDIR PRN #15 tablet 01/27/17 Prednisone [Deltasone 20 mg Tablet] 3 tab PO DAILY 4 Days tablet 01/27/17 Cyclobenzaprine HCl [Flexeril 5 mg Tablet] 5 mg PO TID #15 tablet 05/30/17 Ibuprofen 800 mg PO TID PRN #20 tablet 05/30/17 Phenazopyridine HCl [Pyridium 200 mg Tablet] 200 mg PO TID #15 tablet 10/11/17 Sulfamethoxazole/Trimethoprim [Bactrim Ds Tablet] 1 each PO BID #20 tablet 10/11/17 Allergies/Adverse Reactions: No Known Allergies Allergy (Verified 02/17/20 09:51) Review of Systems Constitutional: ABSENT: chills, fever(s) Eyes: ABSENT: visual disturbances Ears: ABSENT: hearing changes Nose, Mouth, and Throat: ABSENT: headache(s) Cardiovascular: ABSENT: chest pain Respiratory: PRESENT: cough. ABSENT: dyspnea Gastrointestinal: ABSENT: nausea, vomiting Genitourinary: ABSENT: dysuria Musculoskeletal: PRESENT: deformity - Wrist drop in right hand Integumentary: ABSENT: diaphoresis Neurological: PRESENT: confusion, memory loss Psychiatric: PRESENT: other - History of bipolar Endocrine: ABSENT: polyuria Physical Exam Vital Signs: Temp Pulse Resp BP Pulse Ox 98.4 F 115 H 17 143/87 H 96 02/17/20 09:46 02/17/20 09:46 02/17/20 18:01 02/17/20 18:01 02/17/20 18:01 Intake & Output 02/16/20 02/17/20 02/18/20 06:59 06:59 06:59 Intake Total 1999 Balance 1999 Weight 67.585 kg General appearance: PRESENT: no acute distress, cooperative Head exam: PRESENT: normocephalic Eye exam: PRESENT: EOMI, PERRLA. ABSENT: nystagmus, scleral icterus Mouth exam: PRESENT: neck supple Neck exam: ABSENT: JVD Respiratory exam: PRESENT: clear to auscultation la, symmetrical, unlabored. ABSENT: tachypnea, wheezes Cardiovascular exam: PRESENT: +S1, +S2, tachycardia. ABSENT: irregular rhythm GI/Abdominal exam: PRESENT: soft. ABSENT: rebound, rigid, tenderness Extremities exam: PRESENT: other - Mild right upper arm tenderness without overt swelling. ABSENT: calf tenderness Musculoskeletal exam: PRESENT: other - Wrist drop of her right hand. Neurological exam: PRESENT: alert, awake, oriented to person, oriented to place, oriented to time, CN II-XII grossly intact, other - Very much confused with memory loss. ABSENT: oriented to situation, motor sensory deficit Psychiatric exam: ABSENT: agitated, anxious Focused psych exam: ABSENT: pressured speech Results Laboratory Results: 02/17/20 10:47 02/17/20 10:47 02/17/20 02/17/20 02/17/20 10:47 10:47 10:47 WBC 9.2 RBC 3.88 Hgb 11.9 L Hct 34.7 L MCV 89 MCH 30.6 MCHC 34.2 RDW 14.1 H Plt Count 228 Seg Neutrophils % 81.0 H Carbonic Acid HCO3/H2CO3 Ratio ABG pH ABG pCO2 ABG pO2 ABG HCO3 ABG O2 Saturation ABG Base Excess FiO2 Sodium 141.5 Potassium 3.9 Chloride 107 Carbon Dioxide 25 Anion Gap 10 BUN 4 L Creatinine 0.67 Est GFR ( Amer) > 60 Glucose 84 Lactic Acid 0.6 L Calcium 8.8 Magnesium Total Bilirubin 0.5 AST 97 H Alkaline Phosphatase 60 Total Protein 6.7 Albumin 3.7 Urine Color Urine Appearance Urine pH Ur Specific [place] Urine Protein Urine Glucose (UA) Urine Ketones Urine Blood Urine Nitrite Ur Leukocyte Esterase Urine WBC (Auto) Urine RBC (Auto) 02/17/20 02/17/20 02/17/20 10:47 10:47 14:55 WBC RBC Hgb Hct MCV MCH MCHC RDW Plt Count Seg Neutrophils % Carbonic Acid 1.47 H HCO3/H2CO3 Ratio 16:1 ABG pH 7.31 L ABG pCO2 48.7 H ABG pO2 73.1 L ABG HCO3 23.9 ABG O2 Saturation 93.3 L ABG Base Excess -2.7 FiO2 2L Sodium Potassium Chloride Carbon Dioxide Anion Gap BUN Creatinine Est GFR ( Amer) Glucose Lactic Acid Calcium Magnesium 2.2 Total Bilirubin AST Alkaline Phosphatase Total Protein Albumin Urine Color YELLOW Urine Appearance SLIGHTLY-CLOUDY Urine pH 5.0 Ur Specific [place] 1.009 Urine Protein NEGATIVE Urine Glucose (UA) NEGATIVE Urine Ketones TRACE H Urine Blood LARGE H Urine Nitrite NEGATIVE Ur Leukocyte Esterase MODERATE H Urine WBC (Auto) 5 Urine RBC (Auto) 110 02/17/20 10:47 Creatine Kinase 2299 H Impressions: Chest X-Ray 02/17/20 09:58 IMPRESSION: NO ACUTE RADIOGRAPHIC FINDING IN THE CHEST. Head CT 02/17/20 10:06 IMPRESSION: 1. No acute intracranial abnormality. 2. 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 There is no associated hydrocephalus. EVIDENCE OF ACUTE STROKE: NO. Assessment and Plan - Diagnosis (1) Metabolic encephalopathy Is this a current diagnosis for this admission?: Yes Plan: My biggest concern is actually patient's continued mental decline despite treatment of her infections recently and correction of her hypoxia. I discussed this with family. Notably MRI of the brain [refer to patient's other [employer] account] and CT head today have been unimpressive. I recommend neurology consultation (2) Internal jugular vein thrombosis Qualifiers: Laterality: right Qualified Code(s): I82.C11 - Acute embolism and thrombosis of right internal jugular vein Is this a current diagnosis for this admission?: Yes Plan: Venous Doppler done on 02/14/2020 at [facility] shows occlusive thrombus right cephalic and nearly occlusive thrombus in the IJ. Family informs me that at [facility] the next day, they were told that there was no thrombus and that he was just swelling from IV but however family does not confirm that an ultrasound was actually done over there. In light of patient's recent reported GI bleed, patient will be a poor candidate for anticoagulation. Given the discrepancy in what is being reported, it may be worthwhile repeating the ultrasound to confirm is still present or consulting with vascular surgeon or IR at another facility regarding possibility of thrombectomy. This may especially help given patient's right acute wrist drop. (3) Wrist drop, right wrist Is this a current diagnosis for this admission?: Yes Plan: Plan as above (4) Rhabdomyolysis Qualifiers: Rhabdomyolysis type: non-traumatic Qualified Code(s): M62.82 - Rhabdomyolysis Is this a current diagnosis for this admission?: Yes Plan: Minimal rhabdomyolysis. CK only 2000. Give a bolus of IV fluids. Does not need admission for this. (5) Abnormal urinalysis Is this a current diagnosis for this admission?: Yes Plan: Weakly positive. Patient denies urinary symptoms and moreover just recently received several days of antibiotics in the past week. I do not think this is contributing to patient's presentation. - Plan Summary Summary: I have discussed plan with ER provider - Time Time Spent with patient: 35 or more minutes Anticipated Discharge Disposition: unknown - tertiary vs home Anticipated Discharge Timeframe: within 24 hours
[2020-02-18 02:28] VITALS: BP 149/99
== END 2020-02-18 02:34 | disposition short-term general hospital (02) ==
LOC: ER 09:41
DX: N39.0 Urinary tract infection, site not specified (principal); I82.C11 Acute embolism and thrombosis of right internal jugular vein; G93.41 Metabolic encephalopathy; M21.331 Wrist drop, right wrist; M62.82 Rhabdomyolysis; R41.0 Disorientation, unspecified; R05 Cough; F17.200 Nicotine dependence, unspecified, uncomplicated; Z87.19 Personal history of other diseases of the digestive system; R00.0 Tachycardia, unspecified; Z79.52 Long term (current) use of systemic steroids; Z79.899 Other long term (current) drug therapy; Z79.2 Long term (current) use of antibiotics
CPT/HCPCS: 93005; 99285; 96361; 96365; 36415; 82803; 82550; 83605; 83735; 85025; 81025; 80053; 81001; 80307; 71045; 70450; 93010; J0696; J7030; J7120

== ENCOUNTER 2020-02-27 14:34 | Inpatient (IN) | payer MEDICAID ==
[2020-02-27] MEDS ORDERED: CEFTRIAXONE 1 GM/D5W RTU 1 GM/50 ML RTUPB IV ONE (15:00)
--- NOTE | 2020-02-27 15:12 | ER Document Report ---
ED Medical Screen (RME) - General Chief Complaint: Altered Mental Status Stated Complaint: SHORT OF BREATH,COUGH,ALTERED Time Seen by Provider: 02/27/20 14:50 Mode of Arrival: Wheelchair Information source: Relative Cannot obtain history due to: Altered mental status - Sister Notes: 39-year-old female presented to ED for altered mental status not acting her normal self. Sister says for about 2 to 3 weeks she has been incoherent. Intermittently. She states that she has been with the sister since this morning. At 11 AM she was acting her normal self except for unsteady on her feet. She states she took her to [facility] at 11 AM and she was still answering questions appropriately at 1230 she was seen at the urgent care and sent to the emergency room. Sister states she was not coherent at that time. Patient is unable to answer any questions coherently. Does have a fever of 103.1 and a pulse of 129 on the EKG. Sepsis work-up has been started, Rocephin IV has been ordered, IV fluids have been ordered. Charge nurse has been notified, I have consulted with Dr. Correa. She does need to be in a monitored room as soon as one is available. Charge nurse has been informed she needs to be in a monitored bed as she is septic. I have greeted and performed a rapid initial assessment of this patient. A comprehensive ED assessment and evaluation of the patient, analysis of test results and completion of medical decision making process will be conducted by an additional ED providers. TRAVEL OUTSIDE OF THE [place] IN LAST 30 DAYS: No - Related Data Allergies/Adverse Reactions: No Known Allergies Allergy (Verified 02/17/20 09:51) Past Medical History Pulmonary Medical History: Reports: Hx Bronchitis Renal/ Medical History: Denies: Hx Peritoneal Dialysis Musculoskeltal Medical History: Reports Hx Musculoskeletal Deformity - Degenerative disc disease, Reports Hx Musculoskeletal Trauma - Heel fracture Psychiatric Medical History: Reports: Hx Bipolar Disorder, Hx Borderline Personality Disorder, Hx Depression, Hx Post Traumatic Stress Disorder Traumatic Medical History: Reports: Hx Fractures - heel Past Surgical History: Reports: Hx Tubal Ligation, Other - eye - Immunizations Hx Diphtheria, Pertussis, Tetanus Vaccination: Yes Physical Exam - Vital signs Vitals: Temp Pulse Resp BP Pulse Ox 103.1 F H 136 H 16 125/69 92 02/27/20 14:41 02/27/20 14:41 02/27/20 14:41 02/27/20 14:41 02/27/20 14:41 Course - Vital Signs Vital signs: Temp Pulse Resp BP Pulse Ox 103.1 F H 136 H 16 125/69 92 02/27/20 14:41 02/27/20 14:41 02/27/20 14:41 02/27/20 14:41 02/27/20 14:41
[2020-02-27] MEDS ORDERED: ACETAMINOPHEN 325 MG TABLET PO ONE (15:13)
[2020-02-27] MEDS: NORMAL SALINE 1000 ML 1,000 ML IV PRN ×2 (15:34→17:29)
[2020-02-27 15:42] LABS: ABSOLUTE MONOCYTES (AUTO) 0.6 10^3/uL (0.1-1.4); ABSOLUTE NEUT (AUTO) 8.4 10^3/uL (1.7-8.2); BASOPHILS % (AUTO) 0.4 % (0-2); EOSINOPHILS % (AUTO) 0.4 % (0-6); HEMATOCRIT 34.2 % (36.0-47.0); HEMOGLOBIN 11.6 g/dL (12.0-15.5); LYMPHOCYTES % (AUTO) 10.3 % (13-45); MEAN CORPUSCULAR HEMOGLOBIN 29.6 pg (27.0-33.4); MEAN CORPUSCULAR HGB CONC 33.9 g/dL (32.0-36.0); MEAN CORPUSCULAR VOLUME 87 fl (80-97); MONOCYTES % (AUTO) 6.4 % (3-13); PLATELET COUNT 245 10^3/uL (150-450); RED BLOOD COUNT 3.92 10^6/uL (3.72-5.28); RED CELL DISTRIBUTION WIDTH 13.5 % (11.5-14.0); SEGMENTED NEUTROPHILS % (AUTO) 82.5 % (42-78); TOTAL CELLS COUNTED % (AUTO) 100 %; WHITE BLOOD COUNT 10.2 10^3/uL (4.0-10.5)
[2020-02-27 15:44] LABS: VENOUS BLOOD BASE EXCESS 2.1 mmol/L; VENOUS BLOOD PCO2 43.1 mmHg (35-63); VENOUS BLOOD PH 7.42 (7.30-7.42)
[2020-02-27 15:48] LABS: INTERNATIONAL RATION (INR) 1.37
--- NOTE | 2020-02-27 15:56 | RADIOLOGY REPORT (SQ) ---
EXAM DESCRIPTION: CHEST SINGLE VIEW IMAGES COMPLETED DATE/TIME: 02/27/2020 3:34 pm REASON FOR STUDY: septic COMPARISON: 02/17/2020 TECHNIQUE: Single frontal radiographic view of the chest acquired. NUMBER OF VIEWS: One view. LIMITATIONS: None. FINDINGS: LUNGS AND PLEURA: No pneumothorax. No consolidation or pleural effusion. MEDIASTINUM AND HILAR STRUCTURES: Stable. HEART AND VASCULAR STRUCTURES: Stable. BONES: No acute findings. HARDWARE: None in the chest. OTHER: No other significant finding. IMPRESSION: NO ACUTE FINDINGS. TECHNICAL DOCUMENTATION: JOB ID: [id number] 2010 [employer]- All Rights Reserved Reading location - IP/workstation name: [email or web address]
[2020-02-27 16:06] LABS: ALBUMIN 3.7 g/dL (3.5-5.0); ALKALINE PHOSPHATASE 67 U/L (38-126); ANION GAP 8 (5-19); ASPARTATE AMINO TRANSFERASE 227 U/L (14-36); BILIRUBIN,DIRECT 0.3 mg/dL (0.0-0.4); BILIRUBIN,TOTAL 0.5 mg/dL (0.2-1.3); BLOOD UREA NITROGEN 11 mg/dL (7-20); CALCIUM 9.1 mg/dL (8.4-10.2); CARBON DIOXIDE 28 mmol/L (22-30); CHLORIDE 100 mmol/L (98-107); GLUCOSE 100 mg/dL (75-110); POTASSIUM 4.4 mmol/L (3.6-5.0); TOTAL PROTEIN 6.7 g/dL (6.3-8.2)
[2020-02-27 16:13] LABS: ALCOHOL < 10 mg/dL (NONE DETECTED)
--- NOTE | 2020-02-27 16:17 | RADIOLOGY REPORT (SQ) ---
EXAM DESCRIPTION: CT HEAD WITHOUT IMAGES COMPLETED DATE/TIME: 02/27/2020 4:03 pm REASON FOR STUDY: altered mental status COMPARISON: 02/17/2020. TECHNIQUE: Axial images acquired through the brain without intravenous contrast. Images reviewed wi th bone, brain and subdural windows. Additional sagittal and coronal reconstructions were generated. Images stored on PACS. All CT scanners at this facility use dose modulation, iterative reconstruction, and/or weight based d osing when appropriate to reduce radiation dose to as low as reasonably achievable (ALARA). [facility]: Dose Right [facility]: CareDose [facility]: Dose Right [facility]: Teradose 4D [facility]: SoundFit RADIATION DOSE: CT Rad equipment meets quality standard of care and radiation dose reduction techniq ues were employed. CTDIvol: 53.2 mGy. DLP: 1150 mGy-cm. mGy. LIMITATIONS: None. FINDINGS: VENTRICLES: Normal size and contour. 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 No hemorrhage. No midline shift. No e vidence for acute infarction. Normal pollard/white matter differentiation. No areas of low density in th e white matter. CEREBELLUM: No masses. No hemorrhage. No alteration of density. No evidence for acute infarction. EXTRAAXIAL SPACES: No fluid collections. No masses. ORBITS AND GLOBE: No intra- or extraconal masses. Normal contour of globe without masses. CALVARIUM: No fracture. PARANASAL SINUSES: No fluid or mucosal thickening. SOFT TISSUES: No mass or hematoma. OTHER: No other significant finding. IMPRESSION: No acute findings. EVIDENCE OF ACUTE STROKE: NO. COMMENT: Quality ID # [id number]: Final reports with documentation of one or more dose reduction techniques (e.g., Automated exposure control, adjustment of the mA and/or kV according to patient size, use of iterative reconstruction technique) TECHNICAL DOCUMENTATION: JOB ID: [id number] 2010 [employer]- All Rights Reserved Reading location - IP/workstation name: [email or web address]
--- NOTE | 2020-02-27 18:05 | ER Document Report ---
ED General - General Chief Complaint: Altered Mental Status Stated Complaint: SHORT OF BREATH,COUGH,ALTERED Time Seen by Provider: 02/27/20 14:50 Mode of Arrival: Wheelchair Notes: CHIEF COMPLAINT: Altered mentation and fever HPI: 39-year-old female presenting for altered mentation and fever. History is somewhat limited by patient's mental condition. Additional history was obtained from the chart. Patient has had multiple visits recently for altered mentation. Was seen on February 09 and February 13, questionable GI bleed, questionable DVT in the right internal jugular as well as right antecubital region. Patient had been intubated because of being found unresponsive on her neighbors lawn. Patient today was again brought in for evaluation by her sister. Sister is not present for history at this time. Patient had apparently been sent to both [facility] and [facility] recently given her altered mentation. Patient complaining of generalized headache today. Patient complains of cough. Patient states she had been diagnosed previously with pneumonia. Patient denies abdominal pain nausea or vomiting. Patient tells me when I enter the room that she overdosed on Tylenol yesterday taking 15 500 mg tablets around 11 AM in an attempt to hurt herself. States she has cut herself in the past and attempt to harm her self because she has been very depressed recently. Denies any other drug use. ROS: See HPI - all other systems were reviewed and are otherwise negative Constitutional: + fever Eyes: no drainage, no blurred vision ENT: no runny nose, no sore throat Cardiovascular: no chest pain Resp: no SOB, no cough GI: no vomiting, no diarrhea, no abdominal pain : no dysuria Integumentary: no rash Allergy: no hives Musculoskeletal: no extremity pain or swelling Neurological: no numbness/tingling, no weakness, positive headache, positive altered mentation MEDICATIONS: I agree with the patient medications as charted by the RN. ALLERGIES: I agree with the allergies as charted by the RN. PAST MEDICAL HISTORY/PAST SURGICAL HISTORY: Reviewed and agree as charted by RN. SOCIAL HISTORY: Reviewed and agree as charted by RN. FAMILY HISTORY: No significant familial comorbid conditions directly related to patient complaint EXAM: Reviewed vital signs as charted by RN. CONSTITUTIONAL: Alert and oriented and responds appropriately to questions. Well-appearing; well-nourished HEAD: Normocephalic; atraumatic EYES: PERRL; Conjunctivae clear, sclerae non-icteric ENT: normal nose; no rhinorrhea; moist mucous membranes; pharynx without lesions noted, no uvula edema or deviation, no tonsillar hypertrophy, phonation normal NECK: Supple without meningismus; non-tender; no cervical lymphadenopathy, no masses CARD: RRR; no murmurs, no clicks, no rubs, no gallops; symmetric distal pulses RESP: Normal chest excursion without splinting or tachypnea; breath sounds clear and equal bilaterally; no wheezes, no rhonchi, no rales, pulse oximetry ABD/GI: Normal bowel sounds; non-distended; soft, non-tender, no rebound, no guarding; no palpable organomegaly or masses. BACK: The back appears normal and is non-tender to palpation, there is no CVA tenderness EXT: Normal ROM in all joints; non-tender to palpation; no cyanosis, no effusions, no edema SKIN: Normal color for age and race; warm; dry; good turgor; no acute lesions noted NEURO: Moves all extremities equally; Motor and sensory function intact PSYCH: The patient's mood and manner are appropriate. Grooming and personal hygiene are appropriate. Patient is able to tell me the year. Patient believes that it is January. She is able to tell me the date. She knows she is in the hospital. MDM: 39-year-old complicated female with multiple issues. She was brought in for altered mentation with a fever of 103 documented on presentation. She complains of headache denies neck pain. She has absolutely no nuchal rigidity on exam. On review of multiple patient records patient has had multiple complicated issues recently. She was diagnosed with a blood clot in the right internal jugular as well as the right antecubital region and she is currently on Eliquis. Patient's lab work initial did not show significant abnormalities. She is positive for benzodiazepines on her drug screen. She does not appear to have significant UTI. Her chest x-ray is negative for infiltrate. Do not have a definitive reason for her fever today. Have added influenza testing. Will add COVID testing. Was considering lumbar puncture until further questioning revealed that the patient is taking Eliquis, this is now contraindicated to rule out meningitis given her headache and fever although she has no neck stiffness. Discussed with Dr. Lembersky, attending. TRAVEL OUTSIDE OF THE [place] IN LAST 30 DAYS: No - Related Data Allergies/Adverse Reactions: No Known Allergies Allergy (Verified 02/17/20 09:51) Past Medical History - General Information source: Relative - Social History Smoking Status: Current Every Day Smoker Chew tobacco use (# tins/day): No Frequency of alcohol use: Social Drug Abuse: None Family History: Reviewed & Not Pertinent Patient has homicidal ideation: No Pulmonary Medical History: Reports: Hx Bronchitis Renal/ Medical History: Denies: Hx Peritoneal Dialysis Musculoskeletal Medical History: Reports Hx Musculoskeletal Deformity - Degenerative disc disease, Reports Hx Musculoskeletal Trauma - Heel fracture Psychiatric Medical History: Reports: Hx Bipolar Disorder, Hx Borderline Perso nality Disorder, Hx Depression, Hx Post Traumatic Stress Disorder Traumatic Medical History: Reports: Hx Fractures - heel Past Surgical History: Reports: Hx Tubal Ligation, Other - eye - Immunizations Hx Diphtheria, Pertussis, Tetanus Vaccination: Yes Physical Exam - Vital signs Vitals: Temp Pulse Resp BP Pulse Ox 103.1 F H 136 H 16 125/69 92 02/27/20 14:41 02/27/20 14:41 02/27/20 14:41 02/27/20 14:41 02/27/20 14:41 Course - Re-evaluation Re-evalutation: 02/27/20 19:23 I did speak with Tyler the psychiatric team regarding the patient's claim that she had overdosed on Tylenol yesterday at 11. Patient's Tylenol level today is completely negative despite the fact that she received a gram of Tylenol for her fever. She remains mildly tachycardic. She is answering most questions appropriately although we do not have a definitive source for the fever. Patient does complain of continuing headache, cannot do LP because of the Eliquis use. Will discuss with hospitalist regarding admission have given Rocephin and vancomycin for coverage for meningitis 02/27/20 19:[address] Marie, hospitalist. Case was discussed, admit IMCU - Vital Signs Vital signs: Temp Pulse Resp BP Pulse Ox 103.1 F H 136 H 32 H 114/63 94 02/27/20 16:15 02/27/20 14:41 02/27/20 18:00 02/27/20 17:00 02/27/20 18:00 - Laboratory Result Diagrams: 02/27/20 15:19 02/27/20 15:19 Laboratory results interpreted by me: 02/27/20 02/27/20 02/27/20 15:19 15:19 15:19 Hgb 11.6 L Hct 34.2 L Lymph % (Auto) 10.3 L Absolute Neuts (auto) 8.4 H Seg Neutrophils % 82.5 H PT 17.0 H Sodium 135.8 L POC Glucose AST 227 H ALT 78 H Urine Blood Acetaminophen 02/27/20 02/27/20 02/27/20 15:19 16:50 18:00 Hgb Hct Lymph % (Auto) Absolute Neuts (auto) Seg Neutrophils % PT Sodium POC Glucose 111 H AST ALT Urine Blood SMALL H Acetaminophen < 10 L Discharge - Discharge Clinical Impression: Fever in adult AMS (altered mental status) Qualifiers: Altered mental status type: disorientation Qualified Code(s): R41.0 - Disorientation, unspecified Condition: Stable Disposition: ADMITTED INPATIENT Admitting Provider: Cynthia (Hospitalist) Unit Admitted: [facility]
[2020-02-27 18:24] LABS: APPEARANCE,URINE CLEAR; BILIRUBIN,URINE NEGATIVE (NEGATIVE); COLOR,URINE YELLOW; GLUCOSE, URINE NEGATIVE (NEGATIVE); KETONES,URINE NEGATIVE (NEGATIVE); LEUKOCYTE ESTERASE,URINE NEGATIVE (NEGATIVE); NITRITE,URINE NEGATIVE (NEGATIVE); PROTEIN,URINE NEGATIVE (NEGATIVE); URINE SPECIFIC GRAVITY 1.004; UROBILINOGEN,URINE NEGATIVE mg/dL (<2.0)
[2020-02-27] MEDS ORDERED: LIDOCAINE 1% INJ-PF (10 MG/ML) 30 ML SDV INJ ONE (18:28)
[2020-02-27 18:42] LABS: URINE AMPHETAMINES SCREEN NEGATIVE; URINE BARBITURATES SCREEN NEGATIVE; URINE COCAINE SCREEN NEGATIVE; URINE MARIJUANA (THC) SCREEN NEGATIVE; URINE METHADONE SCREEN NEGATIVE; URINE PHENCYCLIDINE SCREEN NEGATIVE
[2020-02-27 18:43] LABS: URINE BENZODIAZEPINES SCREEN UNCONFIRMED POSITIVE
[2020-02-27] MEDS ORDERED: VANCOMYCIN HCL INJ 1000 MG VIAL IV ONE (18:45)
[2020-02-27 18:48] LABS: A TYPE INFLUENZA AG NEGATIVE (NEGATIVE); B INFLUENZA AG NEGATIVE (NEGATIVE)
--- NOTE | 2020-02-27 19:25 | EKG REPORT ---
SEVERITY:- BORDERLINE ECG - SINUS TACHYCARDIA PROBABLE LEFT ATRIAL ABNORMALITY : Confirmed by: Katrin Carpio MD 27-Feb-2020 19:24:38
--- NOTE | 2020-02-27 20:18 | PDOC CONSULTATION ---
Consultation-Blank Consultation: Reason for Consult: reported intentional overdose yesterday Clinician discussed with attending provider the patient's current condition as such a chart review was conducted. Patient is been medically admitted for further medical work up. Patient will be evaluated as her medical condition improves. Patient will be better served with psychiatric consult/evaluation as her medical presentation begins to improve. Behavioral health team will continue to follow
[2020-02-27] MEDS ORDERED: MAG HYDROX/AL HYDROX/SIMETH SUSP 30 ML UDCUP PO PRN (21:14)
[2020-02-27] MEDS ORDERED: MAGNESIUM HYDROXIDE SUSP 30 ML UDCUP PO PRN (21:14)
[2020-02-27] MEDS ORDERED: ONDANSETRON 4 MG TAB.RAPDIS PO PRN (21:14)
[2020-02-27] MEDS ORDERED: ACETAMINOPHEN 325 MG TABLET PO PRN (21:14)
[2020-02-27] MEDS ORDERED: LORAZEPAM INJ 2 MG/1 ML VIAL IV PRN (21:29)
[2020-02-27] MEDS ORDERED: VANCOMYCIN HCL 0 MG in DEXTROSE 5%-WATER 250 ML IV NR (21:30)
--- NOTE | 2020-02-27 21:32 | PDOC H&P ---
History of Present Illness Admission Date/PCP: 02/27/20 19:42 Patient complains of: Altered mental status History of Present Illness: ASTON PATRICK is a 39 year old female with altered mental status who is a very poor historian. There is a question of possible fainting according to the patient. She feels she is dehydrated. She states she was putting groceries in the house. She also states it was hot in the car. Yesterday she thinks she went to a doctor in [place] and then a doctor in [place]. She also states that she could not move her right arm. Per Dr. Solo's note in January the right wrist drop is not new. I reviewed the case with psychiatry. The patient has had recent prescriptions for Sonata and the adverse effects could be similar to what the patient is experiencing. Past Medical History Pulmonary Medical History: Reports: Bronchitis Psychiatric Medical History: Reports: Bipolar Disorder, Depression, Post Traumatic Stress Disorder Past Surgical History Past Surgical History: Reports: Tubal Ligation, Other - eye Social History Information Source: [facility] Records Lives with: Other - Unable to determine Smoking Status: Current Every Day Smoker Electronic Cigarette use?: No Frequency of Alcohol Use: None - Patient denies alcohol Hx Recreational Drug Use: No - Patient denies Hx Prescription Drug Abuse: No - Advance Directive Resuscitation Status: Full Code Family History Family History: Reviewed & Not Pertinent Parental Family History Reviewed: No - Not a reliable historian Children Family History Reviewed: No Sibling(s) Family History Reviewed.: No Medication/Allergy Home Medications: Oxycodone HCl/Acetaminophen [Percocet 5-325 mg Tablet] 1 - 2 tab PO ASDIR PRN #15 tablet 01/27/17 Prednisone [Deltasone 20 mg Tablet] 3 tab PO DAILY 4 Days tablet 01/27/17 Cyclobenzaprine HCl [Flexeril 5 mg Tablet] 5 mg PO TID #15 tablet 05/30/17 Ibuprofen 800 mg PO TID PRN #20 tablet 05/30/17 Phenazopyridine HCl [Pyridium 200 mg Tablet] 200 mg PO TID #15 tablet 10/11/17 Sulfamethoxazole/Trimethoprim [Bactrim Ds Tablet] 1 each PO BID #20 tablet 10/11/17 Allergies/Adverse Reactions: No Known Allergies Allergy (Verified 02/17/20 09:51) Review of Systems ROS unobtainable: Due to mental status Physical Exam Vital Signs: Temp Pulse Resp BP Pulse Ox 103.1 F H 136 H 32 H 114/63 94 02/27/20 16:15 02/27/20 14:41 02/27/20 18:00 02/27/20 17:00 02/27/20 18:00 Intake & Output 02/26/20 02/27/20 02/28/20 06:59 06:59 06:59 Intake Total 2300 Balance 2300 Weight 58.967 kg General appearance: PRESENT: mild distress, well-developed Head exam: PRESENT: atraumatic, normocephalic Eye exam: PRESENT: conjunctiva pink. ABSENT: scleral icterus Ear exam: PRESENT: normal external ear exam. ABSENT: bleeding, drainage Respiratory exam: PRESENT: clear to auscultation la, symmetrical, unlabored. ABSENT: prolonged expiratory phas, rales, rhonchi, tachypnea, wheezes Cardiovascular exam: PRESENT: RRR, +S1, +S2. ABSENT: bradycardia, diastolic murmur, irregular rhythm, systolic murmur, tachycardia GI/Abdominal exam: PRESENT: normal bowel sounds, soft. ABSENT: distended, tenderness Rectal exam: PRESENT: deferred Gentrourinary exam: ABSENT: indwelling catheter Extremities exam: ABSENT: pedal edema Musculoskeletal exam: PRESENT: normal inspection. ABSENT: deformity, dislocation Neurological exam: PRESENT: alert, altered, awake, oriented to person, oriented to time, other - Right wrist drop chronic. ABSENT: oriented to place, oriented to situation Psychiatric exam: PRESENT: flat affect. ABSENT: agitated, anxious Focused psych exam: ABSENT: delusional, paranoid, restlessness Skin exam: PRESENT: dry, normal color, warm. ABSENT: rash Results Laboratory Results: 02/27/20 15:19 02/27/20 15:19 02/27/20 02/27/20 02/27/20 15:19 15:19 15:19 WBC 10.2 RBC 3.92 Hgb 11.6 L Hct 34.2 L MCV 87 MCH 29.6 MCHC 33.9 RDW 13.5 Plt Count 245 Seg Neutrophils % 82.5 H VBG pH 7.42 VBG pCO2 43.1 VBG HCO3 27.0 VBG Base Excess 2.1 Sodium 135.8 L Potassium 4.4 Chloride 100 Carbon Dioxide 28 Anion Gap 8 BUN 11 Creatinine 0.83 Est GFR ( Amer) > 60 Glucose 100 Lactic Acid Calcium 9.1 Total Bilirubin 0.5 AST 227 H Alkaline Phosphatase 67 Total Protein 6.7 Albumin 3.7 Urine Color Urine Appearance Urine pH Ur Specific [place] Urine Protein Urine Glucose (UA) Urine Ketones Urine Blood Urine Nitrite Ur Leukocyte Esterase Urine WBC (Auto) Urine RBC (Auto) 02/27/20 02/27/20 02/27/20 15:19 16:42 18:00 WBC RBC Hgb Hct MCV MCH MCHC RDW Plt Count Seg Neutrophils % VBG pH VBG pCO2 VBG HCO3 VBG Base Excess Sodium Potassium Chloride Carbon Dioxide Anion Gap BUN Creatinine Est GFR ( Amer) Glucose Lactic Acid 1.0 0.8 Calcium Total Bilirubin AST Alkaline Phosphatase Total Protein Albumin Urine Color YELLOW Urine Appearance CLEAR Urine pH 7.0 Ur Specific [place] 1.004 Urine Protein NEGATIVE Urine Glucose (UA) NEGATIVE Urine Ketones NEGATIVE Urine Blood SMALL H Urine Nitrite NEGATIVE Ur Leukocyte Esterase NEGATIVE Urine WBC (Auto) 1 Urine RBC (Auto) 0 Impressions: Chest X-Ray 02/27/20 14:54 IMPRESSION: NO ACUTE FINDINGS. Head CT 02/27/20 14:54 IMPRESSION: No acute findings. EVIDENCE OF ACUTE STROKE: NO. Assessment and Plan - Diagnosis (1) AMS (altered mental status) Qualifiers: Altered mental status type: disorientation Qualified Code(s): R41.0 - Disorientation, unspecified Is this a current diagnosis for this admission?: Yes Plan: Difficult to know the exact etiology of her altered mental status. There is a history of mental illness noted in the record and she has abnormal transaminase levels. In addition there is a possibility that she is suffering from adverse effects of the Sonata. We will provide fluids and reassess (2) Fever in adult Is this a current diagnosis for this admission?: Yes Plan: Unknown etiology. Patient is afebrile today. Cultures pending. IV antibiotics initiated. (3) Internal jugular vein thrombosis Qualifiers: Laterality: right Qualified Code(s): I82.C11 - Acute embolism and thrombosis of right internal jugular vein Is this a current diagnosis for this admission?: Yes Plan: Unsure if any new invasive procedures will need to be done. I will keep the patient off her Eliquis and utilize therapeutic dose Lovenox for now. (4) Wrist drop, right wrist Is this a current diagnosis for this admission?: Yes Plan: Present in January. This is not acute. Continue to monitor. (5) Elevated transaminase level Is this a current diagnosis for this admission?: Yes Plan: Unsure of the etiology of the elevated transaminases. Continue to monitor chemistries. Consider imaging of the liver. - Time Time Spent with patient: 35 or more minutes Medications reviewed and adjusted accordingly: Yes Anticipated Discharge Disposition: Unknown Anticipated Discharge Timeframe: Unknown - Inpatient Certification Based on my medical assessment, after consideration of the patient's comorbidities, presenting symptoms, or acuity I expect that the services needed warrant INPATIENT care.: Yes I certify that my determination is in accordance with my understanding of Medicare's requirements for reasonable and necessary INPATIENT services [42 CFR 412.3e].: Yes Medical Necessity: Need For IV Fluids, Need for IV Antibiotics Post Hospital Care: D/C or Transfer Summary
[2020-02-28] MEDS: RINGERS SOLUTION,LACTATED 1,000 ML IV PRN ×3 (00:57→19:00)
[2020-02-28] MEDS: ENOXAPARIN SODIUM INJ 60 MG/0.6 ML DISP.SYRIN SUBCUT SCH ×3 (00:57→21:08)
[2020-02-28 05:56] LABS: ABSOLUTE LYMPHOCYTES (AUTO) 2.1 10^3/uL (0.5-4.7); ABSOLUTE MONOCYTES (AUTO) 0.7 10^3/uL (0.1-1.4); ABSOLUTE NEUT (AUTO) 4.6 10^3/uL (1.7-8.2); BASOPHILS % (AUTO) 0.6 % (0-2); EOSINOPHILS % (AUTO) 0.5 % (0-6); HEMATOCRIT 31.3 % (36.0-47.0); HEMOGLOBIN 10.8 g/dL (12.0-15.5); LYMPHOCYTES % (AUTO) 27.5 % (13-45); MEAN CORPUSCULAR HGB CONC 34.5 g/dL (32.0-36.0); MEAN CORPUSCULAR VOLUME 87 fl (80-97); MONOCYTES % (AUTO) 9.2 % (3-13); PLATELET COUNT 239 10^3/uL (150-450); RED CELL DISTRIBUTION WIDTH 13.9 % (11.5-14.0); SEGMENTED NEUTROPHILS % (AUTO) 62.2 % (42-78); TOTAL CELLS COUNTED % (AUTO) 100 %; WHITE BLOOD COUNT 7.5 10^3/uL (4.0-10.5)
[2020-02-28 06:17] LABS: ALBUMIN 2.9 g/dL (3.5-5.0); ALKALINE PHOSPHATASE 57 U/L (38-126); ANION GAP 7 (5-19); ASPARTATE AMINO TRANSFERASE 146 U/L (14-36); BILIRUBIN,DIRECT 0.3 mg/dL (0.0-0.4); BILIRUBIN,TOTAL 0.7 mg/dL (0.2-1.3); BLOOD UREA NITROGEN 6 mg/dL (7-20); CALCIUM 8.5 mg/dL (8.4-10.2); CARBON DIOXIDE 24 mmol/L (22-30); CHLORIDE 107 mmol/L (98-107); GLUCOSE 83 mg/dL (75-110); POTASSIUM 3.9 mmol/L (3.6-5.0); TOTAL PROTEIN 5.5 g/dL (6.3-8.2)
[2020-02-28 08:06] LABS: APPEARANCE,URINE SLIGHTLY-CLOUDY; BILIRUBIN,URINE NEGATIVE (NEGATIVE); COLOR,URINE YELLOW; GLUCOSE, URINE NEGATIVE (NEGATIVE); KETONES,URINE TRACE mg/dL (NEGATIVE); LEUKOCYTE ESTERASE,URINE NEGATIVE (NEGATIVE); NITRITE,URINE NEGATIVE (NEGATIVE); PROTEIN,URINE NEGATIVE (NEGATIVE); URINE SPECIFIC GRAVITY 1.009; UROBILINOGEN,URINE NEGATIVE mg/dL (<2.0)
[2020-02-28] MEDS: CEFTRIAXONE 1 GM/D5W RTU 1 GM/50 ML RTUPB IV SCH (09:51)
[2020-02-28] MEDS: VANCOMYCIN HCL 750 MG in DEXTROSE 5%-WATER 250 ML IV SCH ×2 (12:21→21:09)
[2020-02-28 15:50] LABS: FERRITIN 67.7 ng/mL (6.2-137.0)
--- NOTE | 2020-02-28 16:55 | PDOC CONSULTATION ---
Consultation-Blank Consultation: Behavioral Health Consult: Altered Mental Status. While in Emergency Department patient told provider she took and overdose of fifteen Tylenol 500MG the day before arrival to emergency department (so now that would be 2 days ago). She is still being worked up medically as evidenced by medical admission. Chart review today at 1539 indicated Discharge Planning was consulted and informed by nursing staff that patient is on precautions and Discharge Planning could not enter room. Documentation also noted patient still confused. Discharge Planning tried calling patient's mother but no answer. Medical documentation from last evening noted patient tried to get out of bed, was confused, has unsteady gait, had removed monitoring equipment but still had IV so was hung up on the side of the bed. Head CT noted unchanged probable colloid cyst foremen of [place]. It appears patient is still not medically cleared. Want to allow for medical review and less confused state.
--- NOTE | 2020-02-28 17:03 | RADIOLOGY REPORT (SQ) ---
EXAM DESCRIPTION: VENOUS UNILATERAL UPPER IMAGES COMPLETED DATE/TIME: 02/28/2020 4:52 pm REASON FOR STUDY: RUE SWELLING, HX DVT COMPARISON: None. TECHNIQUE: Dynamic and static pollard scale and color images acquired of the right arm venous system. S elected spectral images acquired with additional compression and augmentation maneuvers. The contrala teral subclavian vein and internal jugular vein were also imaged. Images stored on PACS. LIMITATIONS: None. FINDINGS: INTERNAL JUGULAR VEIN: Normal phasicity, compression, augmentation. No visualized echogeni c material on pollard scale. No defects on color images. Comparison opposite side normal. SUBCLAVIAN VEIN: Normal compression, augmentation. No visualized echogenic material on pollard scale. No defects on color images. AXILLARY VEIN: Normal compression, augmentation. No visualized echogenic material on pollard scale. No d efects on color images. BRACHIAL VEIN: Normal compression, augmentation. No visualized echogenic material on pollard scale. No d efects on color images. BASILIC VEIN: Normal compression, augmentation. No visualized echogenic material on pollard scale. No de fects on color images. CEPHALIC VEIN: Normal compression, augmentation. No visualized echogenic material on pollard scale. No d efects on color images. OTHER: No other significant finding. CONTRALATERAL SUBCLAVIAN VEIN AND INTERNAL JUGULAR VEIN: Normal phasicity, compression and augmentation. No visualized echogenic material on pollard scale. No de fects on color images. IMPRESSION: NO EVIDENCE DVT OR SVT IN THE RIGHT ARM. TECHNICAL DOCUMENTATION: JOB ID: [id number] 2010 [email or web address]- All Rights Reserved Reading location - IP/workstation name: [email or web address]
[2020-02-28] MEDS ORDERED: NICOTINE 14 MG/24 HR PATCH.TD24 TD PRN (18:29)
--- NOTE | 2020-02-28 18:41 | PDOC PROGRESS REPORT ---
Subjective Progress Note for:: 02/28/20 Subjective:: The patient is a 39-year-old female with a past medical history of bronchitis, bipolar disease, depression, PTSD, recent GI bleed and right upper extremity and right IJV DVT (related to central line) who was admitted 02/27/2028 with Fever and altered mental status. Patient was seen on afternoon rounds. Upon entering the room, patient was found ambulating. She had just been found smoking cigarettes. 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 Patient is currently alert and orientated to self, hospital, year and portions of history; though remains a very poor historian and it is very difficult to identify factual history of recent events. She then begins loudly crying; is concerned that she is going to miss her wedding next Monday. When she is informed that today is Monday, she then states that her wedding day is Monday. She asks for something to help with her anxiety. She denies fevers, chills, headache, chest pain, dyspnea, abdominal pain, nausea, vomiting, diarrhea. She denies dental pain. Denies pelvic/vaginal concerns. Tmax 103.1/24 hrs. She has no questions or concerns at this time. No concerns per nursing. Reason For Visit: ALTERED MENTAL STATUS, FEVER UNKNOWN ORIGIN Physical Exam Vital Signs: Temp Pulse Resp BP Pulse Ox 98.5 F 84 12 131/77 H 99 02/28/20 17:00 02/28/20 17:00 02/28/20 17:00 02/28/20 17:00 02/28/20 17:00 Intake & Output 02/27/20 02/28/20 02/29/20 06:59 06:59 06:59 Intake Total 2300 1300 Balance 2300 1300 Weight 52.6 kg General appearance: PRESENT: no acute distress, disheveled, well-developed, well-nourished Head exam: PRESENT: atraumatic, normocephalic Eye exam: PRESENT: conjunctiva pink, EOMI, PERRLA. ABSENT: scleral icterus Mouth exam: PRESENT: moist, tongue midline Teeth exam: PRESENT: poor dentation Respiratory exam: PRESENT: clear to auscultation la, symmetrical, unlabored, other - room air. ABSENT: rales, rhonchi, wheezes Cardiovascular exam: PRESENT: RRR. ABSENT: diastolic murmur, rubs, systolic murmur Pulses: PRESENT: normal dorsalis pedis pul Vascular exam: PRESENT: normal capillary refill GI/Abdominal exam: PRESENT: normal bowel sounds, soft. ABSENT: distended, guarding, mass, organolmegaly, rebound, tenderness Rectal exam: PRESENT: deferred Extremities exam: PRESENT: full ROM. ABSENT: calf tenderness, clubbing, pedal edema Musculoskeletal exam: PRESENT: ambulatory Neurological exam: PRESENT: alert, awake, oriented to person, oriented to place, oriented to situation - Confabulates, CN II-XII grossly intact, other - Right wrist drop chronic. ABSENT: oriented to time, motor sensory deficit Psychiatric exam: PRESENT: anxious, other - Labile emotions. ABSENT: homicidal ideation, suicidal ideation Skin exam: PRESENT: dry, intact, warm. ABSENT: cyanosis, rash Results Laboratory Results: 02/28/20 04:47 02/28/20 04:47 02/27/20 02/27/20 02/27/20 18:00 21:42 21:42 WBC RBC Hgb Hct MCV MCH MCHC RDW Plt Count Seg Neutrophils % Sodium Potassium Chloride Carbon Dioxide Anion Gap BUN Creatinine Est GFR ( Amer) Glucose Lactic Acid 0.8 Calcium Magnesium Ferritin Total Bilirubin AST Alkaline Phosphatase Ammonia < 8.7 L C-Reactive Protein Total Protein Albumin Urine Color YELLOW Urine Appearance CLEAR Urine pH 7.0 Ur Specific [place] 1.004 Urine Protein NEGATIVE Urine Glucose (UA) NEGATIVE Urine Ketones NEGATIVE Urine Blood SMALL H Urine Nitrite NEGATIVE Ur Leukocyte Esterase NEGATIVE Urine WBC (Auto) 1 Urine RBC (Auto) 0 02/27/20 02/28/20 02/28/20 21:42 04:47 04:47 WBC 7.5 RBC 3.60 L Hgb 10.8 L Hct 31.3 L MCV 87 MCH 30.0 MCHC 34.5 RDW 13.9 Plt Count 239 Seg Neutrophils % 62.2 Sodium 138.3 Potassium 3.9 Chloride 107 Carbon Dioxide 24 Anion Gap 7 BUN 6 L Creatinine 0.52 Est GFR ( Amer) > 60 Glucose 83 Lactic Acid Calcium 8.5 Magnesium 1.9 Ferritin Total Bilirubin 0.7 AST 146 H Alkaline Phosphatase 57 Ammonia C-Reactive Protein 48.3 H Total Protein 5.5 L Albumin 2.9 L Urine Color Urine Appearance Urine pH Ur Specific [place] Urine Protein Urine Glucose (UA) Urine Ketones Urine Blood Urine Nitrite Ur Leukocyte Esterase Urine WBC (Auto) Urine RBC (Auto) 02/28/20 02/28/20 06:50 13:30 WBC RBC Hgb Hct MCV MCH MCHC RDW Plt Count Seg Neutrophils % Sodium Potassium Chloride Carbon Dioxide Anion Gap BUN Creatinine Est GFR ( Amer) Glucose Lactic Acid Calcium Magnesium Ferritin 67.70 Total Bilirubin AST Alkaline Phosphatase Ammonia C-Reactive Protein Total Protein Albumin Urine Color YELLOW Urine Appearance SLIGHTLY-CLOUDY Urine pH 7.0 Ur Specific [place] 1.009 Urine Protein NEGATIVE Urine Glucose (UA) NEGATIVE Urine Ketones TRACE H Urine Blood NEGATIVE Urine Nitrite NEGATIVE Ur Leukocyte Esterase NEGATIVE Urine WBC (Auto) 2 Urine RBC (Auto) 0 02/27/20 18:00 Clean Catch Midstream Urine Culture - Final Mixed Urogenital Hina Impressions: Chest X-Ray 02/27/20 14:54 IMPRESSION: NO ACUTE FINDINGS. Head CT 02/27/20 14:54 IMPRESSION: No acute findings. EVIDENCE OF ACUTE STROKE: NO. Venous Doppler Study 02/28/20 00:00 IMPRESSION: NO EVIDENCE DVT OR SVT IN THE RIGHT ARM. Assessment and Plan - Diagnosis (1) AMS (altered mental status) Qualifiers: Altered mental status type: disorientation Qualified Code(s): R41.0 - Disorientation, unspecified Is this a current diagnosis for this admission?: Yes Plan: Difficult to know the exact etiology of her altered mental status. There is a history of mental illness noted in the record. Head CT is benign. CBC unremarkable other than mild anemia. Chemistry showed elevated transaminases; decreasing CRP, ESR, LDH, and d-dimer elevated. Ferritin normal. Influenza negative Rapid strep negative UDS positive for benzos. Negative for alcohol and Tylenol. Urinalysis benign. Chest x-ray unremarkable. EKG normal. COVID pending. Blood cultures pending. Urine cultures pending. No nuchal rigidity; low suspicion for meningitis at this time. However, may require LP. Patient is admitted to the medical floor. Continue investigation for source of fever. Continue empiric vancomycin and Rocephin. Continue IV fluids. Supportive care. Safety precautions. Mental health consulted. (2) Fever in adult Is this a current diagnosis for this admission?: Yes Plan: Evaluation as above. (3) Elevated transaminase level Is this a current diagnosis for this admission?: Yes Plan: Unsure of the etiology of the elevated transaminases. Trending down. Continue IV fluids. Follow-up chemistries. Consider imaging of the liver. (4) Internal jugular vein thrombosis Qualifiers: Laterality: right Qualified Code(s): I82.C11 - Acute embolism and thrombosis of right internal jugular vein Is this a current diagnosis for this admission?: Yes Plan: Venous Doppler study was negative for DVT or SVT to the right arm. Internal j ugular vein showed normal specificity, compression, and augmentation. Occult stool pending Potential need for lumbar puncture; therefore, will hold Eliquis and utilize therapeutic dose Lovenox for now. (5) Wrist drop, right wrist Is this a current diagnosis for this admission?: Yes Plan: Present in January. This is not acute. PT/OT consultations. - Plan Summary Summary: Have requested D/C Summaries from [facility] and [facility]. - Time Time Spent with patient: 35 or more minutes Medications reviewed and adjusted accordingly: Yes Anticipated Discharge Disposition: Home, Self Care Anticipated Discharge Timeframe: undetermined
--- NOTE | 2020-02-28 19:24 | RADIOLOGY REPORT (SQ) ---
EXAM DESCRIPTION: HIP RIGHT AP/LATERAL IMAGES COMPLETED DATE/TIME: 02/28/2020 7:02 pm REASON FOR STUDY: pain after fall COMPARISON: None. NUMBER OF VIEWS: Two views. TECHNIQUE: AP pelvis and additional frog legview of the right hip. LIMITATIONS: None. FINDINGS: MINERALIZATION: Normal. Right HIP: No fracture or dislocation. No worrisome bone lesions. Mild anterior CAM deformity. Left HIP: No fracture or dislocation. No worrisome bone lesions. Limited views. PUBIS AND ISCHIUM: No fracture. PELVIS: No fracture. SACRUM: No fracture or dislocation. No worrisome bone lesions. LOWER LUMBAR SPINE: No fracture or dislocation. No worrisome bone lesions. No significant disc disea se. SOFT TISSUES: No findings. OTHER: No other significant finding. IMPRESSION: No acute findings. TECHNICAL DOCUMENTATION: JOB ID: [id number] [place]-[id number] 2010 [employer]- All Rights Reserved Reading location - IP/workstation name: [place]
[2020-02-28] MEDS: BUSPIRONE HCL 10 MG TABLET PO SCH (21:09)
[2020-02-29] MEDS: RINGERS SOLUTION,LACTATED 1,000 ML IV PRN ×2 (03:00→13:05)
[2020-02-29 07:56] LABS: HEMATOCRIT 33.2 % (36.0-47.0); HEMOGLOBIN 11.6 g/dL (12.0-15.5); MEAN CORPUSCULAR HEMOGLOBIN 29.9 pg (27.0-33.4); MEAN CORPUSCULAR HGB CONC 34.9 g/dL (32.0-36.0); MEAN CORPUSCULAR VOLUME 86 fl (80-97); PLATELET COUNT 251 10^3/uL (150-450); RED BLOOD COUNT 3.88 10^6/uL (3.72-5.28); WHITE BLOOD COUNT 4.9 10^3/uL (4.0-10.5)
[2020-02-29 08:27] LABS: ALBUMIN 3.3 g/dL (3.5-5.0); ALKALINE PHOSPHATASE 65 U/L (38-126); ANION GAP 9 (5-19); ASPARTATE AMINO TRANSFERASE 93 U/L (14-36); BILIRUBIN,DIRECT 0.3 mg/dL (0.0-0.4); BILIRUBIN,TOTAL 0.5 mg/dL (0.2-1.3); BLOOD UREA NITROGEN 3 mg/dL (7-20); CALCIUM 8.9 mg/dL (8.4-10.2); CARBON DIOXIDE 25 mmol/L (22-30); CHLORIDE 107 mmol/L (98-107); GLUCOSE 83 mg/dL (75-110); POTASSIUM 4.1 mmol/L (3.6-5.0); TOTAL PROTEIN 6.3 g/dL (6.3-8.2)
[2020-02-29] MEDS: ENOXAPARIN SODIUM INJ 60 MG/0.6 ML DISP.SYRIN SUBCUT SCH (09:35)
[2020-02-29] MEDS: CEFTRIAXONE 1 GM/D5W RTU 1 GM/50 ML RTUPB IV SCH (09:35)
[2020-02-29] MEDS: BUSPIRONE HCL 10 MG TABLET PO SCH (09:35)
[2020-02-29] MEDS: VANCOMYCIN HCL 750 MG in DEXTROSE 5%-WATER 250 ML IV SCH (10:55)
[2020-02-29 11:59] VITALS: BP 124/76
--- NOTE | 2020-02-29 17:00 | Left Against Medical Advice ---
Against Medical Advice Admission Date/Time: 02/27/20 19:42 Primary Care Provider: Date of Patient Emigration: 02/29/20 - Diagnosis: (1) AMS (altered mental status) Is this a current diagnosis for this admission?: Yes (2) Fever in adult Is this a current diagnosis for this admission?: Yes (3) Elevated transaminase level Is this a current diagnosis for this admission?: Yes (4) Internal jugular vein thrombosis Is this a current diagnosis for this admission?: Yes (5) Wrist drop, right wrist Is this a current diagnosis for this admission?: Yes - Summary: Summary: Please see Admission and Progress Notes as well. ASTON PATRICK is a 39 F, who LEFT AGAINST MEDICAL ADVICE. The Patient was admitted on 02/27/20 19:42. Per H&P by Dr. Marie: ASTON PATRICK is a 39 year old female with altered mental status who is a very poor historian. There is a question of possible fainting according to the patient. She feels she is dehydrated. She states she was putting groceries in the house. She also states it was hot in the car. Yesterday she thinks she went to a doctor in [place] and then a doctor in [place]. She also states that she could not move her right arm. Per Dr. Solo's note in January the right wrist drop is not new. I reviewed the case with psychiatry. The patient has had recent prescriptions for Sonata and the adverse effects could be similar to what the patient is experiencing. Course: Upon presentation to the emergency department, patient was found to have a fever of 103 and altered mental status. She was admitted to the medical floor on continuous cardiac telemetry and evaluation for occult infectious process as the cause of her altered mental status was undertaken. Unfortunately, all imaging and laboratory evaluations were equivocal. Head CT is benign. CBC unremarkable other than mild anemia. Chemistry showed elevated transaminases; decreasing CRP, ESR, LDH, and d-dimer elevated. Ferritin normal. Influenza negative Rapid strep negative HIV negative Hepatitis panel pending RPR pending UDS positive for benzos. Negative for alcohol and Tylenol. Urinalysis benign. Chest x-ray unremarkable. EKG normal. COVID pending. Blood cultures negative at 48 hours Urine cultures mixed urogenital landry No nuchal rigidity; low suspicion for meningitis at this time Sed rate, LDH, CRP, and d-dimer are all high. Discussed with patient's mother by phone today to obtain additional recent history. Mother reports patient was transferred to [facility] from our facility due to similar symptoms, however, she is unaware of the findings during hospital stay. Review of records show that she was transferred to [facility] 02/17/2020 for neurological evaluation. Patient had previously been seen at [facility] for acute respiratory failure, of unknown cause, requiring intubation. She is also had a confirmed recent upper GI bleed and right IVC, right upper extremity provoked by central line. We have been able to confirm that the patient was placed on Eliquis by a provider at [facility], and by pill count, patient appears to have been compliant with recommendations. Follow-up imaging is negative for DVT. Since admission, the patient has remained afebrile with no identified source of infectious process. Mentation has returned to baseline. Today she is alert and oriented x4 and able to provide relevant recent medical history. She does tell me that she does not want to remain in the hospital because she is due to be tomorrow. Mother confirms that she is engaged, however, she is not getting tomorrow. Rather, the patient and her fianc intend to move to [place] on Monday. Unfortunately, the patient elected to leave AGAINST MEDICAL ADVICE this afternoon and was not responsive to requests to remain in house by both nursing staff and the patient's mother by phone.
[2020-02-29] MEDS ORDERED: VANCOMYCIN HCL 1,000 MG in DEXTROSE 5%-WATER 250 ML IV SCH (18:00)
--- NOTE | 2020-02-29 18:08 | PDOC CONSULTATION ---
Consultation-Blank Consultation: Behavioral Health Consult: Altered Mental Status. While in Emergency Department patient told provider she took and overdose of fifteen Tylenol 500MG the day before arrival to emergency department (so now that would be 2 days ago). She is still being worked up medically as evidenced by medical admission. Chart review today at 1756 revealed patient left AMA at 1524 despite efforts from medical staff and mother to stay in hospital. Medical documentation noted improved mental state and felt to be at baseline.
[2020-03-02 14:37] LABS: HEPATITS B SURFACE ANTIGEN Negative (Negative)
[2020-03-02 14:47] LABS: HEPATITIS C VIRUS ANTIBODY <0.1 s/co ratio (0.0-0.9)
== END 2020-02-29 15:24 | disposition left against medical advice (07) | DRG 948 ==
LOC: ER 14:34 → EH 19:42 → 4N 02-28 00:20 → 3W 02-28 18:44
PROVIDERS: ADMIT Hospitalist; ATTEND Registered Nurse
DX: R41.82 Altered mental status, unspecified (principal); I82.C11 Acute embolism and thrombosis of right internal jugular vein; T82.868A Thrombosis due to vascular prosthetic devices, implants and grafts, initial encounter; T39.1X2A Poisoning by 4-Aminophenol derivatives, intentional self-harm, initial encounter; Y84.8 Other medical procedures as the cause of abnormal reaction of the patient, or of later complication, without mention of misadventure at the time of the procedure; R50.9 Fever, unspecified; Z20.828 Contact with and (suspected) exposure to other viral communicable diseases; M21.331 Wrist drop, right wrist; Y92.009 Unspecified place in unspecified non-institutional (private) residence as the place of occurrence of the external cause; F43.10 Post-traumatic stress disorder, unspecified; F31.9 Bipolar disorder, unspecified; F17.210 Nicotine dependence, cigarettes, uncomplicated; R74.01 Elevation of levels of liver transaminase levels; Z79.891 Long term (current) use of opiate analgesic; Z79.899 Other long term (current) drug therapy; Z79.52 Long term (current) use of systemic steroids; Z91.5 Personal history of self-harm
CPT/HCPCS: 36415; 70450; 71045; 80048; 80053; 80074; 80076; 80202; 80307; 81001; 82140; 82565; 82728; 82803; 82962; 83605; 83615; 83735; 85025; 85027; 85379; 85610; 85652; 86140; 86592; 86701; 87040; 87070; 87086; 87635; 87804; 87880; 93005; 93010; 93971; 96361; 96365; 96367; 99285; C9803; J0696; J1650; J2060; J3370; J3490; J7030; J7060; J7120